=== PATIENT | female | born 1985 | race American Indian/Alaskan Native ===

== ENCOUNTER 2020-04-04 17:17 | Inpatient (IN) | payer MEDICAID ==
[2020-04-04] MEDS ORDERED: LACTATED RINGERS 1,000 ML ONE ×2 (18:44→20:42)
[2020-04-04 18:53] LABS: Bilirubin,Urine NEG (Negative); Blood,Urine SM (Negative); Color,Urine Yellow (Yellow); Mucus,Urine FEW /HPF; Protein,Urine <15 mg/dL mg/dL (Negative)
[2020-04-04] MEDS ORDERED: LACTATED RINGERS 1,000 ML IV ONE (18:53)
[2020-04-04 19:16] LABS: Hematocrit 32.8 % (30.3-42.9); Hemoglobin 11.6 gm/dl (10.1-14.3); Mean Corpuscular HGB Conc 35 % (30-34); Mean Corpuscular Volume 85 fl (79-97); Platelet Count 166 K/mm3 (140-440); Red Blood Count 3.85 M/mm3 (3.65-5.03); Red Cell Distribution Width 14.4 % (13.2-15.2)
[2020-04-04 19:40] LABS: Alanine Aminotransferase 13 units/L (7-56); Albumin 3.6 g/dL (3.9-5); Blood Urea Nitrogen 4 mg/dL (7-17); Calcium 9.7 mg/dL (8.4-10.2); Hemolysis Index 17
[2020-04-04 19:41] LABS: Alanine Aminotransferase 13 units/L (7-56); Uric Acid 4.5 mg/dL (3.5-7.6)
[2020-04-04 19:43] LABS: BUN/Creatinine Ratio 8
[2020-04-04] MEDS ORDERED: hydrALAZINE 20 MG/1 ML INJ IV PRN (20:24)
--- NOTE | 2020-04-04 20:31 | History and Physical Report ---
History of Present Illness Date of examination: 04/04/20 Date of admission: 04/04/2020 Chief complaint: Sent from [facility] to have BP labs done. Patient states she was supposed to come on Sunday but didn't have time to come until today. History of present illness: 34 year old presents to L&D for preeclamptic labs. She states she saw [facility] on Sunday and was supposed to come and get labs that day but did not have time until tonight. Patient states she receives care at [facility]; records are not available. States she also saw [facility]. Patient reports her EDC is 05/21/2020. LMP 07/2019. Patient reports history of type 2 diabetes for which she takes Metformin 500 mg po TID, depression for which she takes Zoloft 25 mg, and preeclampsia with a previous for which she has been taking a baby aspirin daily. Patient has a history of 3 previous vaginal births (all ). 2 of the births resulted from PPROM and the third was induced due to preeclampsia. Patient reports a penicillin allergy. 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 denies: smoking, alcohol abuse, p rescription drug abuse, IV drug use - Obstetrical History Expected Date of Delivery: 05/21/20 Actual Gestation: 33 Week(s) 2 Day(s) : 4 Para: 3 Hx # Term Pregnancies: 0 Number of Pregnancies: 3 Spontaneous Abortions: 0 Induced : 0 Number of Living Children: 3 Medications and Allergies Allergies Allergy/AdvReac Type Severity Reaction Status Date / Time Penicillins Allergy Swelling Verified 04/04/20 18:02 Home Medications Medication Instructions Recorded Confirmed Last Taken Type Aspirin [Aspirin BABY CHEW TAB] 81 mg PO DAILY 04/04/20 04/04/20 04/03/20 23:00 History Glipizide/Metformin HCl 1 each PO TID 04/04/20 04/04/20 04/04/20 11:30 History [glipiZIDE-Metformin 5-500 mg] Vit-Fe Fumar-FA [ 1 tab PO QDAY 04/04/20 04/04/20 04/03/20 23:00 History Vitamin] Sertraline [Zoloft] 25 mg PO QDAY 04/04/20 04/04/20 04/03/20 23:00 History Active Meds: Active Medications Acetaminophen (Tylenol) 650 mg PO Q4H PRN PRN Reason: Pain, Mild (1-3) Betamethasone Acet/Betameth SodPhos (Celestone Soluspan) 12 mg IM Q24HR ESAU Hydralazine HCl (Apresoline) 5 mg IV Q30MIN PRN PRN Reason: Hypertension Lactated Ringer's (Lactated Ringers) 1,000 mls @ 125 mls/hr IV DIRECT ESAU Magnesium Sulfate (Magnesium Sulfate 40gm/1000ml) 40 gm in 1,000 mls @ 50 mls/hr IV DIRECT ESAU Magnesium Sulfate (Magnesium Sulfate 4gm/100ml) 4 gm in 100 mls @ 300 mls/hr IV ONCE ONE Stop: 04/04/20 21:42 Review of Systems All systems: negative (nausea and elevated blood pressures) - Vital Signs Vital signs: Vital Signs Pulse BP 100 H 173/81 04/04/20 18:08 04/04/20 18:08 Temp Pulse Resp BP Pulse Ox 100 H 192/89 04/04/20 20:15 04/04/20 20:15 - Physical Exam Cardiovascular: Regular rate, Other (murmur heard) Lungs: Positive: Clear to auscultation Abdomen: Positive: normal appearance, soft. Negative: distention, tenderness, guarding, rigidity Genitourinary (Female): Positive: perineal/vulvar lesions, other (small lesion noted on left labia; possible lesion noted at introitus) Vagina: Positive: normal moisture Uterus: Positive: enlarged. Negative: tender Extremities: Positive: normal, edema (edema of hands and feet bilaterally) - Obstetrical FHR: category 1 Uterine Contraction Monitor Mode: External Cervical Dilatation: 2 Cervical Effacement Percentage: 20 station: -3 Uterine Contraction Pattern: Irregular Uterine Contraction Intensity: Mild Results Result Diagrams: 04/04/20 18:54 04/04/20 18:54 Abnormal lab results 04/04/20 04/04/20 04/04/20 Range/Units 18:54 18:54 18:54 MCHC 35 H (30-34) % Sodium 135 L (137-145) mmol/L Potassium 3.5 L (3.6-5.0) mmol/L BUN 4 L (7-17) mg/dL Creatinine 0.5 L 0.5 L (0.6-1.2) mg/dL Albumin 3.6 L (3.9-5) g/dL All other labs normal. Assessment and Plan A: at 33 weeks, 2 days gestation. Preeclampsia with severe features. Type 2 diabetes mellitus. Depression. Obesity. Noncompliance. No records available. Vulvar lesion. P: Admit. Continuous EFM. Labs ( and preeclamptic labs) and Ultrasound (EFW, EGA, EDC, JOHN, BPP, presentation, location and integrity of placenta). Magnesium Sulfate. Antihypertensives (Hydralazine IV and Labetalol PO). Celestone for FLM. NICU consult. Perinatology consult. Strict I/O. Perla catheter. Blood sugars every 2 hours. Request records from [place]. Herpes culture and serology. Valtrex 1 gram po BID started. Discussed with pt. possible etiologies of lesion, possible sequale. Consulted with Dr. Hector re: this patient. Management of patient was in collaboration with .
[2020-04-04] MEDS ORDERED: LACTATED RINGERS 1,000 ML IV SCH (21:00)
[2020-04-04] MEDS ORDERED: MAGNESIUM SULFATE 40GM/1000ML 40 GM/1,000 ML BAG IV SCH (21:00)
[2020-04-04] MEDS ORDERED: MAGNESIUM SULFATE 4 GM/100 ML BAG IV ONE (21:23)
[2020-04-04] MEDS: BETAMET ACET/BETAMET NA PH 6 MG/ML INJ 5 ML MDV IM SCH (21:40)
[2020-04-04] MEDS ORDERED: hydrALAZINE 20 MG/1 ML INJ IV ONE (21:52)
--- NOTE | 2020-04-04 22:44 | Ultrasound Report ---
ULTRASOUND OBSTETRIC INDICATION / CLINICAL INFORMATION: EGA, EDC, EFW, placenta, JOHN, presentation. TECHNIQUE: Transabdominal. COMPARISON: None available. FINDINGS: There is a single intrauterine . BREATHING MOVEMENT = 2 GROSS BODY MOVEMENT = 2 TONE = 2 QUALITATIVE AMNIOTIC FLUID VOLUME = 2 TOTAL BIOPHYSICAL SCORE = 8/8 Biparietal Diameter = 8.1 cm = 32.4 weeks.days Head Circumference = 29.2 cm = 32.2 weeks.days Abdominal Circumference = 29.5 cm = 33.3 weeks.days Femur Length = 6.3 cm = 32.3 weeks.days Average Ultrasound Age (AUA) = 32.5 weeks.days Heart Rate: 161 beats per minute. Estimated Weight in grams (if calculated): 2083 Position: cephalic. Cervix: closed. Length in cm (if measured): 3.6 Placenta: Fundal, grade 0 and free of the os. Amniotic Fluid Volume: normal Amniotic Fluid Index (JOHN) in cm (if calculated): 9.4. Maternal Adnexa: No significant abnormality. IMPRESSION: 1. Single, living intrauterine with estimated sonographic age of 32.5 weeks.days 2. No significant sonographic abnormality. Biophysical profile score of 8 out of 8. Signer Name: Hernandez Jimenes MD Signed: 04/04/2020 10:39 PM Workstation Name: [id number]
[2020-04-05] MEDS: ACETAMINOPHEN 325 MG TAB PO PRN ×2 (00:22→20:18)
[2020-04-05] MEDS: valACYclovir 500 MG TAB PO SCH ×2 (00:23→10:00)
--- NOTE | 2020-04-05 01:13 | Event Note ---
<KERRY ZAVALA - Last Filed: 04/05/20 00:44> Date: 04/05/20 Patient reports contractions every few minutes. Patient is receiving magnesium sulfate. SVE 2.5/60/-3/anterior. Had a long discussion with patient re: genital lesion on left labia and also red area at introitus. Advised patient that culture has been taken and sent to lab and that serology will be drawn. Advised patient that the results take several days and she may deliver before results are available. Advised patient that there is no way to know today whether this lesion is herpes or not. Advised patient that the recommendation is for section if she should go into labor. Advised patient that if she were to have a vaginal and the lesion did happen to be herpes, the baby could have serious sequelae (including blindness, seizures, brain damage, and ). Patient states she fully understands and accepts these risks to her baby and also understands the uncertainty of the lesion. She states she sill wants to proceed with having a vaginal in spite of these possible sequelae to her baby. Informed Dr. Hector of all of the above. <MARAL HECTOR - Last Filed: 04/05/20 02:18> After she gave verbal consent to exam her and discuss care in the presents of her visitor she was examined and findings were discussed. Left anterior labial ulcerated lesion noted, patient denies h/o HSV, states the lesion occurred a couple of days ago after shaving. She was again informed that if she has a vaginal delivery with an active genital HSV lesion the infection may be transmitted to the baby and such infection could cause poor outcome such as, but not limited to, blindness, brain damage and . She was also informed that delivery is recommended to prevent or mitigated the risk of transmission to the baby. Again she declines delivery should she labor however she's aware she can change her mind at time. She voiced understanding.
[2020-04-05 01:15] LABS: Hepatitis C Virus Antibody Non-Reactive (NonReactive)
[2020-04-05] MEDS ORDERED: DEXTROSE 50% IN WATER (25GM) 50 ML SYRINGE IV PRN (02:47)
[2020-04-05] MEDS: INSULIN REGULAR, HUMAN 100 UNIT/ML 3ML VIAL SUB-Q SCH ×2 (12:55→23:03)
--- NOTE | 2020-04-05 13:14 | Consultation ---
History of Present Illness Consult date: 04/05/20 Requesting physician: FATIMAH ALAS History of present illness: History of present illness: Ms. Faith is 34 y/o EGA at 33 3/7 weeks ANNALEE at 05/21/20 - followed by [facility] duet to AMA DM and H/O Preeclampsia , PTD Presented last pm for PIH evaluation ( Seen by TONI on 04/02/20 and had recommended admission on Sunday for PIH work up ) Seen by TONI Sunday and BP's borderline elevated at 147/87 and 140/69 History of Preeclampsia with 3rd 2018 and Induced at 36 weeks On Admission last pm BP's elevated - Highest at 191/104 and 166/66 - started on Labetalol ( " and patient states they were about to have blood drawn when BP's spiked and she is afraid of needles") BP's - most recent 120/82 and 114/80 - Currently on Labetalol 100 BID and Mg Had PEARL's - ? due to Mg Pos FM's ---- No Scotoma or RUQ pain Ext no edema - DTR 1/ no clonus and Abd no RUQ tenderness ---- BS's 78 and 178 - currently on Metrformin 500 TID --- Labs UA spot prot at < 15 H/H at 11.6/32 Plts at 166 AST/ALT at 32/13 Creat at .5 ---- EFM 130 - Categ I occ ctx's ---- [facility] -03/26/20 - EFW at 1731 grams (3#13oz) 20% with AC at 22% ---- 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, gonorrhea, hepatitis B, hepatitis C, herpes, HIV, syphilis, trichomonas Family/Genetic History: diabetes, heart disease, cancer - Obstetrical History : 4 Medications and Allergies Allergies Allergy/AdvReac Type Severity Reaction Status Date / Time Penicillins Allergy Swelling Verified 04/04/20 18:02 Home Medications Medication Instructions Recorded Confirmed Last Taken Type Aspirin [Aspirin BABY CHEW TAB] 81 mg PO DAILY 04/04/20 04/04/20 04/03/20 23:00 History Glipizide/Metformin HCl 1 each PO TID 04/04/20 04/04/20 04/04/20 11:30 History [glipiZIDE-Metformin 5-500 mg] Vit-Fe Fumar-FA [ 1 tab PO QDAY 04/04/20 04/04/20 04/03/20 23:00 History Vitamin] Sertraline [Zoloft] 25 mg PO QDAY 04/04/20 04/04/20 04/03/20 23:00 History Active Meds: Active Medications Acetaminophen (Tylenol) 650 mg PO Q4H PRN PRN Reason: Pain, Mild (1-3) Last Admin: 04/05/20 00:22 Dose: 650 mg Documented by: Dextrose (D50w (25gm) Syringe) 0 ml IV Q30MIN PRN; Protocol PRN Reason: Hypoglycemia Magnesium Sulfate (Magnesium Sulfate 40gm/1000ml) 40 gm in 1,000 mls @ 50 mls/hr IV DIRECT ESAU Last Admin: 04/04/20 21:25 Dose: 2 gm/hr, 50 mls/hr Documented by: Lactated Ringer's (Lactated Ringers) 1,000 mls @ 125 mls/hr IV DIRECT ESAU Insulin Human Regular (Humulin R) 0 unit SUB-Q Q6HR ESAU; Protocol Labetalol HCl (Labetalol) 100 mg PO BID ESAU Labetalol HCl (Labetalol) 200 mg PO BID ESAU Valacyclovir HCl (Valtrex) 1,000 mg PO BID ESAU Last Admin: 04/05/20 00:23 Dose: 1,000 mg Documented by: - Vital Signs Vital signs: Vital Signs Pulse BP 100 H 173/81 04/04/20 18:08 04/04/20 18:08 Temp Pulse Resp BP Pulse Ox 98.1 F 95 H 20 121/70 100 04/05/20 07:00 04/05/20 13:04 04/05/20 11:00 04/05/20 12:53 04/05/20 13:04 Results Result Diagrams: 04/04/20 18:54 04/04/20 18:54 Abnormal lab results 04/04/20 04/04/20 04/04/20 Range/Units 18:54 18:54 18:54 MCHC 35 H (30-34) % Sodium 135 L (137-145) mmol/L Potassium 3.5 L (3.6-5.0) mmol/L BUN 4 L (7-17) mg/dL Creatinine 0.5 L 0.5 L (0.6-1.2) mg/dL POC Glucose (70-105) mg/dL Magnesium (1.7-2.3) mg/dL Albumin 3.6 L (3.9-5) g/dL 04/05/20 04/05/20 04/05/20 Range/Units 03:10 03:42 12:56 MCHC (30-34) % Sodium (137-145) mmol/L Potassium (3.6-5.0) mmol/L BUN (7-17) mg/dL Creatinine (0.6-1.2) mg/dL POC Glucose 178 H 170 H (70-105) mg/dL Magnesium 4.50 H (1.7-2.3) mg/dL Albumin (3.9-5) g/dL All other labs normal. Assessment and Plan Impression: 1. Harris IUP at 33 3/7 weeks 2. Gestational HTN - R/O Preeclampsia with Severe Features 3. DM 4. H/O Preeclampsia with third 5. H/O depression 6. H/O PTD X 2 ( PPROM X 2) Recommendations 1. Steroids for FLM 2. DC Mg this afternoon 3. Obtain 24 Hour urine for prot and CC 4. Accuchecks Fastings and 2 Hour PP's 5. Labetalol 100 BID 6. LDA 7. Metformin 500 TID 8. Delivery for S/S of preeclampsia with severe features or compromise 9. If BP's remain stable will consider DC with close maternal/ surveillance and PIH labs weekly and BPP's weekly 10. Patient also told if discharged to monitor for S/S of PIH and get BP cuff/machine and take BP's daily
--- NOTE | 2020-04-05 19:16 | Progress Note ---
Subjective - Subjective Date of service: 04/05/20 Principal diagnosis: elevated blood pressures Interval history: 34 yo at 33w3d followed by [facility] 2/2 AMA, DM (on metformin), and H/O Preeclampsia, depression (on Zoloft), hx delivery x 2 presenting with elevated blood pressures. Now getting 24H TP. BPs mildly elevated. s/p steriods x 1, needs 2nd dose. On magnesium. On labetolol 100mg BID for elevated BPs. Patient reports now thinking she had [place] contractions, but now think they were regular contractions. Today PM at ~1800, has vaginal clot passage. Still normal movement. Objective - Vital Signs Latest vital signs: Vital Signs Temp Pulse Resp BP Pulse Ox 04/05/20 19:04 93 H 100 04/05/20 19:01 18 100 04/05/20 18:59 95 H 100 04/05/20 18:54 95 H 100 04/05/20 18:52 92 H 140/67 04/05/20 18:49 93 H 100 04/05/20 18:44 107 H 100 04/05/20 18:23 95 H 129/67 04/05/20 17:49 107 H 100 04/05/20 17:44 90 99 04/05/20 17:39 92 H 100 04/05/20 17:34 102 H 100 04/05/20 17:29 104 H 100 04/05/20 17:24 103 H 100 04/05/20 17:19 101 H 99 04/05/20 17:14 91 H 99 04/05/20 17:09 103 H 100 04/05/20 17:04 91 H 99 04/05/20 17:00 16 99 04/05/20 16:59 99 H 99 04/05/20 16:54 90 100 04/05/20 16:52 100 H 131/68 04/05/20 16:49 95 H 100 04/05/20 16:44 102 H 98 04/05/20 16:39 91 H 98 04/05/20 16:34 90 99 04/05/20 16:29 99 H 100 04/05/20 16:24 101 H 100 04/05/20 16:19 99 H 99 04/05/20 16:14 98 H 100 04/05/20 16:09 92 H 98 11/16/20 16:04 90 99 16/20 15:59 102 H 99 16/20 15:54 91 H 99 16/20 15:52 100 H 123/65 16/20 15:49 96 H 99 16/20 15:44 91 H 98 16/20 15:39 89 98 16/20 15:34 98 H 100 16/20 15:29 87 99 16/20 15:24 85 100 16/20 15:19 101 H 99 16/20 15:14 102 H 100 16/20 15:09 99 H 100 16/20 15:04 97 H 100 16/20 15:00 98.0 F 19 100 20 14:59 93 H 98 20 14:54 91 H 98 20 14:52 91 H 99/52 20 14:49 92 H 99 20 14:44 95 H 100 20 14:39 93 H 99 20 14:34 93 H 100 20 14:29 92 H 100 20 14:24 92 H 100 20 14:23 93 H 113/51 04/05/20 14:19 83 100 04/05/20 14:14 84 99 20 14:09 82 99 04/05/20 14:04 83 99 20 14:01 85 94/51 20 13:59 82 99 20 13:55 87 93/52 20 13:54 84 100 1620 13:52 83 96/52 20 13:49 79 99 1620 13:44 82 99 1620 13:39 82 99 1620 13:34 88 99 1620 13:29 88 99 1620 13:24 88 100 1620 13:19 90 99 1620 13:14 89 99 1620 13:09 97 H 99 20 13:04 95 H 100 1620 13:00 20 99 20 12:59 93 H 99 11/16/20 12:54 102 H 100 16/20 12:53 100 H 121/70 16/20 12:49 97 H 99 16/20 12:44 95 H 98 16/20 12:39 89 100 16/20 12:34 91 H 99 16/20 12:29 87 98 16/20 12:24 83 99 16/20 12:19 86 99 16/20 12:14 85 100 16/20 12:09 79 100 16/20 12:04 93 H 99 16/20 11:59 93 H 99 16/20 11:54 92 H 114/57 99 16/20 11:49 86 99 16/20 11:44 84 96 16/20 11:39 95 H 99 16/20 11:34 97 H 97 04/05/20 11:29 97 H 97 16/20 11:24 100 H 98 04/05/20 11:19 99 H 97 04/05/20 11:14 99 H 97 04/05/20 11:09 101 H 97 04/05/20 11:04 101 H 97 16/20 11:00 98.1 F 20 99 16/20 10:59 105 H 98 16/20 10:54 100 H 98 16/20 10:53 96 H 125/59 16/20 10:49 98 H 99 16/20 10:44 99 H 99 16/20 10:39 101 H 99 16/20 10:34 105 H 99 16/20 10:29 91 H 98 16/20 10:24 93 H 97 16/20 10:19 96 H 97 16/20 10:14 93 H 98 16/20 10:09 93 H 98 16/20 10:04 94 H 97 16/20 09:59 95 H 97 16/20 09:54 93 H 98 16/20 09:52 92 H 120/60 16/20 09:49 95 H 98 16/20 09:44 95 H 99 16/20 09:39 92 H 99 16/20 09:34 102 H 99 16/20 09:29 95 H 99 16/20 09:24 104 H 99 20 09:19 103 H 100 20 09:14 103 H 100 20 09:09 107 H 100 20 09:04 98 H 100 20 09:00 18 100 20 08:59 100 H 99 20 08:54 100 H 99 20 08:52 103 H 134/64 20 08:49 101 H 100 1620 08:44 94 H 99 20 08:39 97 H 99 20 08:34 96 H 100 20 08:29 93 H 99 20 08:24 95 H 98 20 08:19 92 H 98 04/05/20 08:14 101 H 100 20 08:09 92 H 98 04/05/20 08:04 105 H 98 04/05/20 07:59 102 H 99 04/05/20 07:54 102 H 133/73 100 20 07:49 102 H 100 20 07:44 97 H 99 20 07:39 98 H 100 20 07:34 99 H 99 04/05/20 07:29 98 H 99 04/05/20 07:24 100 H 100 20 07:19 99 H 100 04/05/20 07:14 109 H 99 04/05/20 07:09 102 H 99 04/05/20 07:04 99 H 99 04/05/20 07:00 98.1 F 18 99 20 06:59 101 H 100 20 06:54 102 H 99 20 06:52 105 H 133/68 20 06:49 104 H 100 20 06:44 104 H 99 20 06:39 99 H 99 20 06:34 105 H 99 20 06:29 103 H 97 20 06:24 100 H 99 20 06:19 91 H 98 20 06:14 99 H 99 20 06:09 91 H 99 11/16/20 06:04 91 H 99 /16/20 05:59 92 H 99 16/20 05:54 95 H 99 /16/20 05:52 94 H 136/75 16/20 05:49 93 H 99 16/20 05:44 95 H 99 16/20 05:39 104 H 99 16/20 05:34 95 H 97 16/20 05:29 95 H 98 16/20 05:24 94 H 99 16/20 05:19 98 H 99 16/20 05:14 111 H 99 16/20 05:09 101 H 99 16/20 05:04 106 H 99 16/20 04:59 99 H 98 16/20 04:54 104 H 99 16/20 04:52 97 H 129/67 16/20 04:49 101 H 98 16/20 04:44 101 H 98 16/20 04:39 104 H 98 16/20 04:34 102 H 97 16/20 04:29 102 H 97 16/20 04:24 101 H 97 /16/20 04:19 102 H 97 16/20 04:14 102 H 97 16/20 04:09 102 H 98 16/20 04:04 100 H 97 16/20 03:59 101 H 97 16/20 03:54 104 H 99 16/20 03:52 98 H 122/62 16/20 03:49 98 H 99 16/20 03:44 105 H 99 16/20 03:39 104 H 99 16/20 03:34 100 H 100 /16/20 03:29 106 H 100 /16/20 03:24 101 H 99 16/20 03:19 92 H 99 16/20 03:14 105 H 98 16/20 03:09 94 H 98 16/20 03:04 93 H 100 16/20 02:59 96 H 99 16/20 02:54 95 H 131/72 99 16/20 02:49 99 H 99 16/20 02:44 96 H 99 11/16/20 02:39 92 H 98 04/05/20 02:34 93 H 100 04/05/20 02:29 105 H 99 04/05/20 02:24 102 H 98 04/05/20 02:19 101 H 97 04/05/20 02:14 102 H 99 04/05/20 02:09 105 H 100 04/05/20 02:04 106 H 99 04/05/20 01:59 101 H 98 04/05/20 01:54 101 H 99 04/05/20 01:52 98 H 119/57 04/05/20 01:49 104 H 99 04/05/20 01:44 100 H 98 04/05/20 01:39 99 H 99 04/05/20 01:34 99 H 99 04/05/20 01:29 98 H 100 04/05/20 01:24 98 H 100 04/05/20 01:19 101 H 99 04/05/20 01:14 94 H 99 04/05/20 01:09 91 H 99 04/05/20 01:04 97 H 98 04/05/20 00:59 92 H 99 04/05/20 00:54 91 H 100 04/05/20 00:52 96 H 120/57 04/05/20 00:49 96 H 100 04/05/20 00:44 97 H 99 04/05/20 00:39 95 H 100 04/05/20 00:34 93 H 100 04/05/20 00:29 109 H 100 04/05/20 00:24 104 H 100 04/05/20 00:19 99 H 100 04/05/20 00:18 103 H 142/67 04/05/20 00:14 105 H 100 04/05/20 00:09 98 H 100 04/05/20 00:04 102 H 100 04/04/20 23:59 103 H 99 04/04/20 23:54 101 H 99 04/04/20 23:52 100 H 127/67 04/04/20 23:49 101 H 100 04/04/20 23:44 100 H 99 04/04/20 23:39 103 H 100 04/04/20 23:34 107 H 100 04/04/20 23:29 102 H 99 04/04/20 23:24 101 H 99 04/04/20 23:19 103 H 99 04/04/20 23:14 99 H 100 04/04/20 23:09 99 H 100 04/04/20 23:04 108 H 100 04/04/20 22:59 103 H 100 04/04/20 22:54 105 H 99 04/04/20 22:53 104 H 131/76 04/04/20 22:49 103 H 140/67 100 04/04/20 22:44 106 H 99 04/04/20 22:39 102 H 99 04/04/20 22:34 103 H 99 04/04/20 22:30 18 99 04/04/20 22:29 103 H 99 04/04/20 22:24 104 H 99 04/04/20 22:19 111 H 99 04/04/20 22:14 98.4 F 101 H 100 04/04/20 22:09 98 H 100 04/04/20 22:04 109 H 99 04/04/20 21:59 94 H 100 04/04/20 21:54 95 H 99 04/04/20 21:51 98 H 166/74 04/04/20 21:50 110 H 191/104 04/04/20 21:49 109 H 99 04/04/20 21:46 102 H 159/74 04/04/20 21:45 106 H 159/74 04/04/20 21:44 110 H 100 04/04/20 21:39 104 H 153/74 100 04/04/20 21:34 100 H 144/74 99 04/04/20 21:29 101 H 153/73 99 04/04/20 21:25 18 98 04/04/20 21:24 107 H 153/74 99 04/04/20 21:19 103 H 157/74 99 04/04/20 21:14 103 H 154/75 99 04/04/20 21:09 102 H 158/77 100 04/04/20 21:04 103 H 159/78 99 04/04/20 20:45 94 H 174/86 04/04/20 20:15 100 H 192/89 04/04/20 20:00 85 169/82 04/04/20 19:45 86 190/90 04/04/20 19:16 92 H 171/77 Intake and Output 04/05/20 04/05/20 04/05/20 07:59 15:59 23:59 Output Total 9954 883 6204 Balance -1400 -900 -1000 Output: Urine 4321 986 9853 Indwelling Catheter 7954 165 4656 Other: Total, Output Amount 500 100 450 - Labs Labs: Abnormal lab results 04/04/20 04/04/20 04/04/20 Range/Units 18:54 18:54 18:54 MCHC 35 H (30-34) % Sodium 135 L (137-145) mmol/L Potassium 3.5 L (3.6-5.0) mmol/L BUN 4 L (7-17) mg/dL Creatinine 0.5 L 0.5 L (0.6-1.2) mg/dL POC Glucose (70-105) mg/dL Magnesium (1.7-2.3) mg/dL Albumin 3.6 L (3.9-5) g/dL 04/05/20 04/05/20 04/05/20 Range/Units 03:10 03:42 12:56 MCHC (30-34) % Sodium (137-145) mmol/L Potassium (3.6-5.0) mmol/L BUN (7-17) mg/dL Creatinine (0.6-1.2) mg/dL POC Glucose 178 H 170 H (70-105) mg/dL Magnesium 4.50 H (1.7-2.3) mg/dL Albumin (3.9-5) g/dL 04/05/20 Range/Units 15:00 MCHC (30-34) % Sodium (137-145) mmol/L Potassium (3.6-5.0) mmol/L BUN (7-17) mg/dL Creatinine (0.6-1.2) mg/dL POC Glucose (70-105) mg/dL Magnesium 4.60 H (1.7-2.3) mg/dL Albumin (3.9-5) g/dL
--- NOTE | 2020-04-05 19:21 | Progress Note ---
Assessment and Plan - Patient Problems (1) contractions Current Visit: Yes Status: Acute Plan to address problem: --Started on Nifedipine 10mg q6hr for tocolysis (2) Vaginal bleeding in Current Visit: Yes Status: Acute Plan to address problem: --Abruption labs ordered. EFM wnl and patient feeling normal movement (3) Elevated blood pressure affecting in third trimester, antepartum Current Visit: Yes Status: Acute Plan to address problem: --Continue labetolol 100mg BID, 24H TP pending. On steriods, to complete 2 doses. On magnesium for neuroprotection. To be d/c in PM. Amp if evidence of labor. On low dose asprin given hx of SPE. (4) Diabetes in Current Visit: Yes Status: Acute Plan to address problem: --CBGs per routine. Metformin 500mg TID. (5) Depression affecting Current Visit: Yes Status: Acute Plan to address problem: --Continue home Zoloft (6) Genital lesion, female Current Visit: Yes Status: Acute Plan to address problem: --Denies hx of HSV. Patient was regardless and accepts risk if HSV pos. Started prophylactically on acyclovir. Subjective - Subjective Date of service: 04/05/20 Principal diagnosis: elevated blood pressures Interval history: 34 yo at 33w3d followed by [facility] 2/2 AMA, DM (on metformin), and H/O Preeclampsia, depression (on Zoloft), hx delivery x 2 presenting with elevated blood pressures. Now getting 24H TP. BPs mildly elevated. s/p steriods x 1, needs 2nd dose. On magnesium. On labetolol 100mg BID for elevated BPs. Patient reports now thinking she had [place] contractions, but now think they were regular contractions. Today PM at ~1800, has vaginal clot passage. Still normal movement. Patient reports: vaginal bleeding (with clot passage, since resolved) Objective - Vital Signs Vital Signs: Vital Signs - 12hr 04/05/20 04/05/20 04/05/20 07:19 07:24 07:29 Temperature Pulse Rate 99 H 100 H 98 H Respiratory Rate Blood Pressure O2 Sat by Pulse 100 100 99 Oximetry 04/05/20 04/05/20 04/05/20 07:34 07:39 07:44 Temperature Pulse Rate 99 H 98 H 97 H Respiratory Rate Blood Pressure O2 Sat by Pulse 99 100 99 Oximetry 04/05/20 04/05/20 04/05/20 07:49 07:54 07:59 Temperature Pulse Rate 102 H 102 H 102 H Respiratory Rate Blood Pressure 133/73 O2 Sat by Pulse 100 100 99 Oximetry 04/05/20 04/05/20 04/05/20 08:04 08:09 08:14 Temperature Pulse Rate 105 H 92 H 101 H Respiratory Rate Blood Pressure O2 Sat by Pulse 98 98 100 Oximetry 04/05/20 04/05/20 04/05/20 08:19 08:24 08:29 Temperature Pulse Rate 92 H 95 H 93 H Respiratory Rate Blood Pressure O2 Sat by Pulse 98 98 99 Oximetry 04/05/20 04/05/20 04/05/20 08:34 08:39 08:44 Temperature Pulse Rate 96 H 97 H 94 H Respiratory Rate Blood Pressure O2 Sat by Pulse 100 99 99 Oximetry 04/05/20 04/05/20 04/05/20 08:49 08:52 08:54 Temperature Pulse Rate 101 H 103 H 100 H Respiratory Rate Blood Pressure 134/64 O2 Sat by Pulse 100 99 Oximetry 04/05/20 04/05/20 04/05/20 08:59 09:00 09:04 Temperature Pulse Rate 100 H 98 H Respiratory 18 Rate Blood Pressure O2 Sat by Pulse 99 100 100 Oximetry 04/05/20 04/05/20 04/05/20 09:09 09:14 09:19 Temperature Pulse Rate 107 H 103 H 103 H Respiratory Rate Blood Pressure O2 Sat by Pulse 100 100 100 Oximetry 04/05/20 04/05/20 04/05/20 09:24 09:29 09:34 Temperature Pulse Rate 104 H 95 H 102 H Respiratory Rate Blood Pressure O2 Sat by Pulse 99 99 99 Oximetry 04/05/20 04/05/20 04/05/20 09:39 09:44 09:49 Temperature Pulse Rate 92 H 95 H 95 H Respiratory Rate Blood Pressure O2 Sat by Pulse 99 99 98 Oximetry 04/05/20 04/05/20 04/05/20 09:52 09:54 09:59 Temperature Pulse Rate 92 H 93 H 95 H Respiratory Rate Blood Pressure 120/60 O2 Sat by Pulse 98 97 Oximetry 04/05/20 04/05/20 04/05/20 10:04 10:09 10:14 Temperature Pulse Rate 94 H 93 H 93 H Respiratory Rate Blood Pressure O2 Sat by Pulse 97 98 98 Oximetry 04/05/20 04/05/20 04/05/20 10:19 10:24 10:29 Temperature Pulse Rate 96 H 93 H 91 H Respiratory Rate Blood Pressure O2 Sat by Pulse 97 97 98 Oximetry 04/05/20 04/05/20 04/05/20 10:34 10:39 10:44 Temperature Pulse Rate 105 H 101 H 99 H Respiratory Rate Blood Pressure O2 Sat by Pulse 99 99 99 Oximetry 04/05/20 04/05/20 04/05/20 10:49 10:53 10:54 Temperature Pulse Rate 98 H 96 H 100 H Respiratory Rate Blood Pressure 125/59 O2 Sat by Pulse 99 98 Oximetry 04/05/20 04/05/20 04/05/20 10:59 11:00 11:04 Temperature 98.1 F Pulse Rate 105 H 101 H Respiratory 20 Rate Blood Pressure O2 Sat by Pulse 98 99 97 Oximetry 04/05/20 04/05/20 04/05/20 11:09 11:14 11:19 Temperature Pulse Rate 101 H 99 H 99 H Respiratory Rate Blood Pressure O2 Sat by Pulse 97 97 97 Oximetry 04/05/20 04/05/20 04/05/20 11:24 11:29 11:34 Temperature Pulse Rate 100 H 97 H 97 H Respiratory Rate Blood Pressure O2 Sat by Pulse 98 97 97 Oximetry 04/05/20 04/05/20 04/05/20 11:39 11:44 11:49 Temperature Pulse Rate 95 H 84 86 Respiratory Rate Blood Pressure O2 Sat by Pulse 99 96 99 Oximetry 04/05/20 04/05/20 04/05/20 11:54 11:59 12:04 Temperature Pulse Rate 92 H 93 H 93 H Respiratory Rate Blood Pressure 114/57 O2 Sat by Pulse 99 99 99 Oximetry 04/05/20 04/05/20 04/05/20 12:09 12:14 12:19 Temperature Pulse Rate 79 85 86 Respiratory Rate Blood Pressure O2 Sat by Pulse 100 100 99 Oximetry 04/05/20 04/05/20 04/05/20 12:24 12:29 12:34 Temperature Pulse Rate 83 87 91 H Respiratory Rate Blood Pressure O2 Sat by Pulse 99 98 99 Oximetry 04/05/20 04/05/20 04/05/20 12:39 12:44 12:49 Temperature Pulse Rate 89 95 H 97 H Respiratory Rate Blood Pressure O2 Sat by Pulse 100 98 99 Oximetry 04/05/20 04/05/20 04/05/20 12:53 12:54 12:59 Temperature Pulse Rate 100 H 102 H 93 H Respiratory Rate Blood Pressure 121/70 O2 Sat by Pulse 100 99 Oximetry 04/05/20 04/05/20 04/05/20 13:00 13:04 13:09 Temperature Pulse Rate 95 H 97 H Respiratory 20 Rate Blood Pressure O2 Sat by Pulse 99 100 99 Oximetry 04/05/20 04/05/20 04/05/20 13:14 13:19 13:24 Temperature Pulse Rate 89 90 88 Respiratory Rate Blood Pressure O2 Sat by Pulse 99 99 100 Oximetry 04/05/20 04/05/20 04/05/20 13:29 13:34 13:39 Temperature Pulse Rate 88 88 82 Respiratory Rate Blood Pressure O2 Sat by Pulse 99 99 99 Oximetry 04/05/20 04/05/20 04/05/20 13:44 13:49 13:52 Temperature Pulse Rate 82 79 83 Respiratory Rate Blood Pressure 96/52 O2 Sat by Pulse 99 99 Oximetry 04/05/20 04/05/20 04/05/20 13:54 13:55 13:59 Temperature Pulse Rate 84 87 82 Respiratory Rate Blood Pressure 93/52 O2 Sat by Pulse 100 99 Oximetry 04/05/20 04/05/20 04/05/20 14:01 14:04 14:09 Temperature Pulse Rate 85 83 82 Respiratory Rate Blood Pressure 94/51 O2 Sat by Pulse 99 99 Oximetry 04/05/20 04/05/20 04/05/20 14:14 14:19 14:23 Temperature Pulse Rate 84 83 93 H Respiratory Rate Blood Pressure 113/51 O2 Sat by Pulse 99 100 Oximetry 04/05/20 04/05/20 04/05/20 14:24 14:29 14:34 Temperature Pulse Rate 92 H 92 H 93 H Respiratory Rate Blood Pressure O2 Sat by Pulse 100 100 100 Oximetry 04/05/20 04/05/20 04/05/20 14:39 14:44 14:49 Temperature Pulse Rate 93 H 95 H 92 H Respiratory Rate Blood Pressure O2 Sat by Pulse 99 100 99 Oximetry 04/05/20 04/05/20 04/05/20 14:52 14:54 14:59 Temperature Pulse Rate 91 H 91 H 93 H Respiratory Rate Blood Pressure 99/52 O2 Sat by Pulse 98 98 Oximetry 04/05/20 04/05/20 04/05/20 15:00 15:04 15:09 Temperature 98.0 F Pulse Rate 97 H 99 H Respiratory 19 Rate Blood Pressure O2 Sat by Pulse 100 100 100 Oximetry 04/05/20 04/05/20 04/05/20 15:14 15:19 15:24 Temperature Pulse Rate 102 H 101 H 85 Respiratory Rate Blood Pressure O2 Sat by Pulse 100 99 100 Oximetry 04/05/20 04/05/20 04/05/20 15:29 15:34 15:39 Temperature Pulse Rate 87 98 H 89 Respiratory Rate Blood Pressure O2 Sat by Pulse 99 100 98 Oximetry 04/05/20 04/05/20 04/05/20 15:44 15:49 15:52 Temperature Pulse Rate 91 H 96 H 100 H Respiratory Rate Blood Pressure 123/65 O2 Sat by Pulse 98 99 Oximetry 04/05/20 04/05/20 04/05/20 15:54 15:59 16:04 Temperature Pulse Rate 91 H 102 H 90 Respiratory Rate Blood Pressure O2 Sat by Pulse 99 99 99 Oximetry 04/05/20 04/05/20 04/05/20 16:09 16:14 16:19 Temperature Pulse Rate 92 H 98 H 99 H Respiratory Rate Blood Pressure O2 Sat by Pulse 98 100 99 Oximetry 04/05/20 04/05/20 04/05/20 16:24 16:29 16:34 Temperature Pulse Rate 101 H 99 H 90 Respiratory Rate Blood Pressure O2 Sat by Pulse 100 100 99 Oximetry 04/05/20 04/05/20 04/05/20 16:39 16:44 16:49 Temperature Pulse Rate 91 H 102 H 95 H Respiratory Rate Blood Pressure O2 Sat by Pulse 98 98 100 Oximetry 04/05/20 04/05/20 04/05/20 16:52 16:54 16:59 Temperature Pulse Rate 100 H 90 99 H Respiratory Rate Blood Pressure 131/68 O2 Sat by Pulse 100 99 Oximetry 04/05/20 04/05/20 04/05/20 17:00 17:04 17:09 Temperature Pulse Rate 91 H 103 H Respiratory 16 Rate Blood Pressure O2 Sat by Pulse 99 99 100 Oximetry 04/05/20 04/05/2020 17:14 17:19 17:24 Temperature Pulse Rate 91 H 101 H 103 H Respiratory Rate Blood Pressure O2 Sat by Pulse 99 99 100 Oximetry 04/05/20 04/05/20 04/05/20 17:29 17:34 17:39 Temperature Pulse Rate 104 H 102 H 92 H Respiratory Rate Blood Pressure O2 Sat by Pulse 100 100 100 Oximetry 04/05/20 04/05/20 04/05/20 17:44 17:49 18:23 Temperature Pulse Rate 90 107 H 95 H Respiratory Rate Blood Pressure 129/67 O2 Sat by Pulse 99 100 Oximetry 04/05/20 04/05/20 04/05/20 18:44 18:49 18:52 Temperature Pulse Rate 107 H 93 H 92 H Respiratory Rate Blood Pressure 140/67 O2 Sat by Pulse 100 100 Oximetry 04/05/20 04/05/20 04/05/20 18:54 18:59 19:01 Temperature Pulse Rate 95 H 95 H Respiratory 18 Rate Blood Pressure O2 Sat by Pulse 100 100 100 Oximetry 04/05/20 04/05/20 04/05/20 19:04 19:09 19:14 Temperature Pulse Rate 93 H 100 H 98 H Respiratory Rate Blood Pressure O2 Sat by Pulse 100 100 100 Oximetry - Exam Abdomen: Present: normal appearance, normal bowel sounds, other (gravid) Uterine Contraction Pattern: Irregular Uterine Tone Measurement Phase: Resting Uterine Contraction Intensity: Strong/Firm - Labs Labs: Abnormal Labs 04/04/20 04/04/20 04/04/20 18:54 18:54 18:54 MCHC 35 H Sodium 135 L Potassium 3.5 L BUN 4 L Creatinine 0.5 L 0.5 L POC Glucose Magnesium Albumin 3.6 L 04/05/20 04/05/20 04/05/20 03:10 03:42 12:56 MCHC Sodium Potassium BUN Creatinine POC Glucose 178 H 170 H Magnesium 4.50 H Albumin 04/05/20 15:00 MCHC Sodium Potassium BUN Creatinine POC Glucose Magnesium 4.60 H Albumin Laboratory Results - last 24 hr 04/04/20 04/04/20 04/04/20 00:05 18:54 18:54 Sodium 135 L Potassium 3.5 L Chloride 102.7 Carbon Dioxide 22 Anion Gap 14 BUN 4 L Creatinine 0.5 L 0.5 L Estimated GFR > 60 > 60 BUN/Creatinine Ratio 8 Glucose 92 POC Glucose Hemoglobin A1c Uric Acid 4.5 Calcium 9.7 Magnesium Total Bilirubin 0.30 AST 31 32 ALT 13 13 Alkaline Phosphatase 92 Lactate Dehydrogenase 176 Total Protein 6.4 Albumin 3.6 L Albumin/Globulin Ratio 1.3 Syphilis IgG Antibody Hep Bs Antigen Hepatitis C Antibody HIV 1&2 Antibody Rapid HIV P24 Antigen Rubella IgG Antibody Blood Type AB POSITIVE Antibody Screen Negative 04/04/20 04/04/20 04/05/20 18:54 21:55 00:05 Sodium Potassium Chloride Carbon Dioxide Anion Gap BUN Creatinine Estimated GFR BUN/Creatinine Ratio Glucose POC Glucose 70 Hemoglobin A1c 6.0 Uric Acid Calcium Magnesium Total Bilirubin AST ALT Alkaline Phosphatase Lactate Dehydrogenase Total Protein Albumin Albumin/Globulin Ratio Syphilis IgG Antibody Nonreactive Hep Bs Antigen Hepatitis C Antibody Non-reactive HIV 1&2 Antibody Rapid HIV P24 Antigen Rubella IgG Antibody Immune Blood Type Antibody Screen 04/05/20 04/05/20 04/05/20 00:05 00:05 03:10 Sodium Potassium Chloride Carbon Dioxide Anion Gap BUN Creatinine Estimated GFR BUN/Creatinine Ratio Glucose POC Glucose 178 H Hemoglobin A1c Uric Acid Calcium Magnesium Total Bilirubin AST ALT Alkaline Phosphatase Lactate Dehydrogenase Total Protein Albumin Albumin/Globulin Ratio Syphilis IgG Antibody Hep Bs Antigen Non-reactive Hepatitis C Antibody HIV 1&2 Antibody Rapid Non react HIV P24 Antigen Non react Rubella IgG Antibody Blood Type Antibody Screen 04/05/20 04/05/20 04/05/20 03:42 12:56 15:00 Sodium Potassium Chloride Carbon Dioxide Anion Gap BUN Creatinine Estimated GFR BUN/Creatinine Ratio Glucose POC Glucose 170 H Hemoglobin A1c Uric Acid Calcium Magnesium 4.50 H 4.60 H Total Bilirubin AST ALT Alkaline Phosphatase Lactate Dehydrogenase Total Protein Albumin Albumin/Globulin Ratio Syphilis IgG Antibody Hep Bs Antigen Hepatitis C Antibody HIV 1&2 Antibody Rapid HIV P24 Antigen Rubella IgG Antibody Blood Type Antibody Screen
[2020-04-05 19:25] LABS: Basophils % (Auto) 0.1 % (0.0-1.8); Hematocrit 29.2 % (30.3-42.9); Lymphocytes # (Auto) 1.1 K/mm3 (1.2-5.4); Lymphocytes % (Auto) 14.1 % (13.4-35.0); Mean Corpuscular HGB Conc 34 % (30-34); Mean Corpuscular Volume 88 fl (79-97); Monocytes # (Auto) 0.4 K/mm3 (0.0-0.8); Monocytes % (Auto) 5.7 % (0.0-7.3); Platelet Count 160 K/mm3 (140-440); Red Blood Count 3.34 M/mm3 (3.65-5.03); Red Cell Distribution Width 14.6 % (13.2-15.2)
[2020-04-05 19:45] LABS: INR 1.13 (0.87-1.13)
[2020-04-05 19:46] LABS: Partial Thromboplastin Time 24.9 Sec. (24.2-36.6)
--- NOTE | 2020-04-05 21:10 | Consultation ---
Consult Note - Parent Education I met with parent(s) and discussed the following:: Need for NICU admission, Poss ible need for intubation and surfactant or other resp support, Temperature regulation, Possible need for IV fluids/TPN and IV antibiotics, Possible need for umbilical lines, Importance of providing breast milk & encouraged pumping aft delivery, Donor breast milk if baby meets criteria after , Slow feeding advancement and monitoring of tolerance. NG/OG feeds, Need to monitor for jaundice, Data for survival & survival without significant co-morbidities Parent(s) demonstrated understanding of all the information:: Yes Assessment and Plan - Assessment Gestation:: 33.3 - Plan Plan: Agree with Mag & steroids Will attend delivery Please call NICU with questions
[2020-04-05] MEDS: BETAMET ACET/BETAMET NA PH 6 MG/ML INJ 5 ML MDV IM SCH (22:00)
[2020-04-05] MEDS: NIFEdipine*For Tocolysis only* 10 MG CAPSULE PO SCH (22:02)
[2020-04-05] MEDS: LACTATED RINGERS 1,000 ML IV SCH (22:03)
[2020-04-06] MEDS ORDERED: ALUM-MAG HYDROXIDE-SIMETHICONE 200-200-20MG/5ML ORAL LIQD 30 ML PO PRN (01:00)
[2020-04-06] MEDS ORDERED: CALCIUM CARBONATE 500 MG TAB CHEW PO ONE (01:15)
[2020-04-06] MEDS: INSULIN REGULAR, HUMAN 100 UNIT/ML 3ML VIAL SUB-Q SCH ×4 (02:19→23:01)
[2020-04-06] MEDS: NIFEdipine*For Tocolysis only* 10 MG CAPSULE PO SCH ×2 (02:36→07:57)
[2020-04-06] MEDS: LACTATED RINGERS 1,000 ML IV SCH (06:01)
[2020-04-06] MEDS: metFORMIN 500 MG TAB PO SCH ×3 (07:58→17:03)
--- NOTE | 2020-04-06 10:11 | Progress Note ---
Assessment and Plan - Patient Problems (1) contractions Current Visit: Yes Status: Acute Plan to address problem: --Improved on nifedipine, Continue on Nifedipine 10mg q6hr for tocolysis (2) Vaginal bleeding in Current Visit: Yes Status: Acute Plan to address problem: --Single episode. Since resolved. Abruption labs wnl. EFM wnl and patient feeling normal movement. Continue to monitor. (3) Elevated blood pressure affecting in third trimester, antepartum Current Visit: Yes Status: Acute Plan to address problem: --Given mildly elevated, increase labetolol 100mg from BID to TID, 24H TP pending. S/p steriods x 2 doses. S/p magnesium for neuroprotection. Amp if evidence of labor. On low dose asprin given hx of SPE. (4) Diabetes in Current Visit: Yes Status: Acute (5) Depression affecting Current Visit: Yes Status: Acute (6) Genital lesion, female Current Visit: Yes Status: Acute Subjective - Subjective Date of service: 04/06/20 Principal diagnosis: elevated blood pressures Interval history: Now getting 24H TP. BPs mildly elevated. s/p steriods x 2. S/p magnesium. On labetolol 100mg BID for elevated BPs. Reports contractions improved now on nifedipine. No labor complaints. No further vaginal bleeding s/p single episode. Patient reports: vaginal bleeding (with clot passage, since resolved) Objective - Vital Signs Vital Signs: Vital Signs - 12hr 04/05/20 04/05/20 04/05/20 22:09 22:14 22:19 Temperature Pulse Rate 100 H 100 H 103 H Respiratory Rate Blood Pressure O2 Sat by Pulse 100 100 100 Oximetry 04/05/20 04/05/20 04/05/20 22:24 22:29 22:34 Temperature Pulse Rate 103 H 100 H 103 H Respiratory Rate Blood Pressure O2 Sat by Pulse 100 100 100 Oximetry 04/05/20 04/05/20 04/05/20 22:39 22:44 22:49 Temperature Pulse Rate 105 H 102 H 103 H Respiratory Rate Blood Pressure O2 Sat by Pulse 100 100 100 Oximetry 04/05/20 04/05/20 04/05/20 22:52 22:54 22:59 Temperature Pulse Rate 100 H 97 H 96 H Respiratory Rate Blood Pressure 140/71 O2 Sat by Pulse 100 100 Oximetry 11/04/05/20 04/05/20 23:04 23:09 23:14 Temperature Pulse Rate 107 H 109 H 104 H Respiratory Rate Blood Pressure O2 Sat by Pulse 100 100 100 Oximetry 04/05/20 04/05/20 04/05/20 23:19 23:21 23:23 Temperature Pulse Rate 103 H 100 H 93 H Respiratory Rate Blood Pressure 164/84 134/65 O2 Sat by Pulse 100 Oximetry 04/05/20 04/05/20 04/05/20 23:24 23:29 23:34 Temperature Pulse Rate 98 H 91 H 107 H Respiratory Rate Blood Pressure O2 Sat by Pulse 100 100 100 Oximetry 04/05/20 04/05/20 04/05/20 23:39 23:44 23:49 Temperature Pulse Rate 95 H 101 H 107 H Respiratory Rate Blood Pressure O2 Sat by Pulse 100 99 99 Oximetry 04/05/20 04/05/20 04/05/20 23:53 23:54 23:59 Temperature Pulse Rate 100 H 98 H 112 H Respiratory Rate Blood Pressure 144/77 O2 Sat by Pulse 100 99 Oximetry 04/06/20 04/06/20 04/06/20 00:04 00:09 00:14 Temperature Pulse Rate 109 H 101 H 101 H Respiratory Rate Blood Pressure O2 Sat by Pulse 99 99 98 Oximetry 04/06/20 04/06/20 04/06/20 00:19 00:24 00:29 Temperature Pulse Rate 100 H 109 H 95 H Respiratory Rate Blood Pressure O2 Sat by Pulse 98 99 98 Oximetry 04/06/20 04/06/20 04/06/20 00:34 00:39 00:44 Temperature Pulse Rate 101 H 96 H 93 H Respiratory Rate Blood Pressure O2 Sat by Pulse 97 99 99 Oximetry 04/06/20 04/06/20 04/06/20 00:49 00:52 00:54 Temperature Pulse Rate 89 86 90 Respiratory Rate Blood Pressure 118/59 O2 Sat by Pulse 98 99 Oximetry 04/06/20 04/06/20 04/06/20 00:59 01:04 01:09 Temperature Pulse Rate 97 H 87 103 H Respiratory Rate Blood Pressure O2 Sat by Pulse 99 98 99 Oximetry 04/06/20 04/06/20 04/06/20 01:14 01:19 01:24 Temperature Pulse Rate 99 H 93 H 96 H Respiratory Rate Blood Pressure O2 Sat by Pulse 99 99 98 Oximetry 04/06/20 04/06/20 04/06/20 01:29 01:34 01:39 Temperature Pulse Rate 97 H 99 H 102 H Respiratory Rate Blood Pressure O2 Sat by Pulse 97 97 97 Oximetry 04/06/20 04/06/20 04/06/20 01:44 01:49 01:53 Temperature Pulse Rate 98 H 100 H 98 H Respiratory Rate Blood Pressure 119/64 O2 Sat by Pulse 97 97 Oximetry 04/06/20 04/06/20 04/06/20 01:54 01:59 02:04 Temperature Pulse Rate 99 H 102 H 100 H Respiratory Rate Blood Pressure O2 Sat by Pulse 97 97 97 Oximetry 04/06/20 04/06/20 04/06/20 02:09 02:14 02:19 Temperature Pulse Rate 99 H 98 H 106 H Respiratory Rate Blood Pressure O2 Sat by Pulse 99 98 99 Oximetry 04/06/20 04/06/20 04/06/20 02:24 02:29 02:34 Temperature Pulse Rate 99 H 97 H 101 H Respiratory Rate Blood Pressure O2 Sat by Pulse 98 98 98 Oximetry 04/06/20 04/06/20 04/06/20 02:39 02:44 02:49 Temperature Pulse Rate 109 H 94 H 104 H Respiratory Rate Blood Pressure O2 Sat by Pulse 98 99 99 Oximetry 04/06/20 04/06/20 04/06/20 02:52 02:54 02:59 Temperature Pulse Rate 99 H 101 H 103 H Respiratory Rate Blood Pressure 135/69 O2 Sat by Pulse 97 97 Oximetry 04/06/20 04/06/20 04/06/20 03:04 03:09 03:14 Temperature Pulse Rate 106 H 110 H 107 H Respiratory Rate Blood Pressure O2 Sat by Pulse 96 96 96 Oximetry 04/06/20 04/06/20 04/06/20 03:19 03:24 03:29 Temperature Pulse Rate 107 H 106 H 105 H Respiratory Rate Blood Pressure O2 Sat by Pulse 97 96 98 Oximetry 04/06/20 04/06/20 04/06/20 03:34 03:39 03:44 Temperature Pulse Rate 103 H 122 H 109 H Respiratory Rate Blood Pressure O2 Sat by Pulse 96 98 97 Oximetry 04/06/20 04/06/20 04/06/20 03:49 03:52 03:54 Temperature Pulse Rate 111 H 111 H 107 H Respiratory Rate Blood Pressure 123/64 O2 Sat by Pulse 97 96 Oximetry 04/06/20 04/06/20 04/06/20 03:59 04:04 04:09 Temperature Pulse Rate 103 H 108 H 103 H Respiratory Rate Blood Pressure O2 Sat by Pulse 97 97 97 Oximetry 04/06/20 04/06/20 04/06/20 04:14 04:19 04:24 Temperature Pulse Rate 103 H 104 H 104 H Respiratory Rate Blood Pressure O2 Sat by Pulse 97 97 97 Oximetry 04/06/20 04/06/20 04/06/20 04:29 04:34 04:39 Temperature Pulse Rate 101 H 102 H 104 H Respiratory Rate Blood Pressure O2 Sat by Pulse 97 97 97 Oximetry 04/06/20 04/06/20 04/06/20 04:44 04:49 04:53 Temperature Pulse Rate 101 H 96 H 104 H Respiratory Rate Blood Pressure 137/74 O2 Sat by Pulse 97 98 Oximetry 04/06/20 04/06/20 04/06/20 04:54 04:59 05:04 Temperature Pulse Rate 99 H 95 H 99 H Respiratory Rate Blood Pressure O2 Sat by Pulse 98 99 98 Oximetry 04/06/20 04/06/20 04/06/20 05:09 05:14 05:19 Temperature Pulse Rate 109 H 104 H 107 H Respiratory Rate Blood Pressure O2 Sat by Pulse 98 98 98 Oximetry 04/06/20 04/06/20 04/06/20 05:24 05:29 05:34 Temperature Pulse Rate 109 H 105 H 106 H Respiratory Rate Blood Pressure O2 Sat by Pulse 97 97 98 Oximetry 04/06/20 04/06/20 04/06/20 05:39 05:44 05:49 Temperature Pulse Rate 104 H 113 H 105 H Respiratory Rate Blood Pressure O2 Sat by Pulse 98 97 97 Oximetry 04/06/20 04/06/20 04/06/20 05:52 05:54 05:59 Temperature Pulse Rate 100 H 105 H 106 H Respiratory Rate Blood Pressure 133/72 O2 Sat by Pulse 98 98 Oximetry 04/06/20 04/06/20 04/06/20 06:04 06:09 06:14 Temperature Pulse Rate 106 H 107 H 110 H Respiratory Rate Blood Pressure O2 Sat by Pulse 98 99 98 Oximetry 04/06/20 04/06/20 04/06/20 06:19 06:24 06:29 Temperature Pulse Rate 116 H 107 H 96 H Respiratory Rate Blood Pressure O2 Sat by Pulse 99 99 99 Oximetry 04/06/20 04/06/20 04/06/20 06:34 06:39 06:44 Temperature Pulse Rate 97 H 103 H 99 H Respiratory Rate Blood Pressure O2 Sat by Pulse 99 99 99 Oximetry 04/06/20 04/06/20 04/06/20 06:49 06:52 06:54 Temperature Pulse Rate 102 H 96 H 97 H Respiratory Rate Blood Pressure 138/77 O2 Sat by Pulse 98 98 Oximetry 04/06/20 04/06/20 04/06/20 06:59 07:04 07:09 Temperature Pulse Rate 99 H 98 H 101 H Respiratory Rate Blood Pressure O2 Sat by Pulse 100 98 98 Oximetry 04/06/20 04/06/20 04/06/20 07:14 07:19 07:24 Temperature Pulse Rate 91 H 97 H 100 H Respiratory Rate Blood Pressure O2 Sat by Pulse 99 99 98 Oximetry 04/06/20 04/06/20 04/06/20 07:29 07:34 07:39 Temperature Pulse Rate 101 H 105 H 103 H Respiratory Rate Blood Pressure O2 Sat by Pulse 99 99 99 Oximetry 04/06/20 04/06/20 04/06/20 07:44 07:49 07:53 Temperature Pulse Rate 104 H 86 95 H Respiratory Rate Blood Pressure 144/78 O2 Sat by Pulse 99 100 Oximetry 04/06/20 04/06/20 04/06/20 07:54 07:58 07:59 Temperature 99 F Pulse Rate 96 H 101 H Respiratory 16 Rate Blood Pressure O2 Sat by Pulse 99 99 Oximetry 04/06/20 04/06/20 04/06/20 08:04 08:09 08:14 Temperature Pulse Rate 88 93 H 101 H Respiratory Rate Blood Pressure O2 Sat by Pulse 100 100 99 Oximetry 04/06/20 04/06/20 04/06/20 08:19 08:24 08:29 Temperature Pulse Rate 100 H 90 106 H Respiratory Rate Blood Pressure O2 Sat by Pulse 99 100 99 Oximetry 04/06/20 04/06/20 04/06/20 08:34 08:39 08:44 Temperature Pulse Rate 93 H 92 H 93 H Respiratory Rate Blood Pressure O2 Sat by Pulse 100 100 100 Oximetry 04/06/20 04/06/20 04/06/20 08:49 08:52 08:54 Temperature Pulse Rate 101 H 96 H 105 H Respiratory Rate Blood Pressure 141/76 O2 Sat by Pulse 100 100 Oximetry 04/06/20 04/06/20 04/06/20 08:59 09:04 09:09 Temperature Pulse Rate 99 H 99 H 107 H Respiratory Rate Blood Pressure O2 Sat by Pulse 100 99 99 Oximetry 04/06/20 04/06/20 04/06/20 09:14 09:19 09:24 Temperature Pulse Rate 111 H 110 H 109 H Respiratory Rate Blood Pressure O2 Sat by Pulse 99 98 98 Oximetry 04/06/20 04/06/20 04/06/20 09:29 09:34 09:39 Temperature Pulse Rate 112 H 118 H 109 H Respiratory Rate Blood Pressure O2 Sat by Pulse 98 99 99 Oximetry 04/06/20 04/06/20 04/06/20 09:44 09:49 09:53 Temperature Pulse Rate 109 H 103 H 94 H Respiratory Rate Blood Pressure 141/80 O2 Sat by Pulse 100 100 Oximetry 04/06/20 04/06/20 04/06/20 09:54 09:59 10:04 Temperature Pulse Rate 102 H 109 H 103 H Respiratory Rate Blood Pressure O2 Sat by Pulse 100 99 97 Oximetry - Exam Abdomen: Present: normal appearance, normal bowel sounds FHR: category 1 Uterine Contraction Monitor Mode: External Extremities: normal - Labs Labs: Abnormal Labs 04/04/20 04/04/20 04/04/20 18:54 18:54 18:54 RBC Hgb Hct MCHC 35 H Lymph # (Auto) Seg Neutrophils % D-Dimer Sodium 135 L Potassium 3.5 L BUN 4 L Creatinine 0.5 L 0.5 L POC Glucose Magnesium Albumin 3.6 L 04/05/20 04/05/20 04/05/20 03:10 03:42 12:56 RBC Hgb Hct MCHC Lymph # (Auto) Seg Neutrophils % D-Dimer Sodium Potassium BUN Creatinine POC Glucose 178 H 170 H Magnesium 4.50 H Albumin 04/05/20 04/05/20 04/05/20 15:00 18:38 19:07 RBC Hgb Hct MCHC Lymph # (Auto) Seg Neutrophils % D-Dimer Sodium Potassium BUN Creatinine POC Glucose 253 H Magnesium 4.60 H 3.90 H Albumin 04/05/20 04/05/20 04/05/20 19:07 19:07 22:48 RBC 3.34 L Hgb 10.0 L Hct 29.2 L MCHC Lymph # (Auto) 1.1 L Seg Neutrophils % 80.1 H D-Dimer 1008.11 H Sodium Potassium BUN Creatinine POC Glucose 210 H Magnesium Albumin 04/06/20 04/06/20 02:27 06:16 RBC Hgb Hct MCHC Lymph # (Auto) Seg Neutrophils % D-Dimer Sodium Potassium BUN Creatinine POC Glucose 194 H 194 H Magnesium Albumin Laboratory Results - last 24 hr 04/05/20 04/05/20 04/05/20 12:56 15:00 18:38 WBC RBC Hgb Hct MCV MCH MCHC RDW Plt Count Lymph % (Auto) [place] % (Auto) Eos % (Auto) Baso % (Auto) Lymph # (Auto) [place] # (Auto) Eos # (Auto) Baso # (Auto) Seg Neutrophils % Seg Neutrophils # PT INR APTT Fibrinogen D-Dimer POC Glucose 170 H 253 H Magnesium 4.60 H KB % Cells 04/05/20 04/05/20 04/05/20 19:07 19:07 19:07 WBC 7.6 RBC 3.34 L Hgb 10.0 L Hct 29.2 L MCV 88 MCH 30 MCHC 34 RDW 14.6 Plt Count 160 Lymph % (Auto) 14.1 [place] % (Auto) 5.7 Eos % (Auto) 0.0 Baso % (Auto) 0.1 Lymph # (Auto) 1.1 L [place] # (Auto) 0.4 Eos # (Auto) 0.0 Baso # (Auto) 0.0 Seg Neutrophils % 80.1 H Seg Neutrophils # 6.1 PT 14.6 INR 1.13 APTT 24.9 Fibrinogen 386 D-Dimer 1008.11 H POC Glucose Magnesium 3.90 H KB % Cells 04/05/20 04/05/20 04/06/20 22:48 Unknown 02:27 WBC RBC Hgb Hct MCV MCH MCHC RDW Plt Count Lymph % (Auto) [place] % (Auto) Eos % (Auto) Baso % (Auto) Lymph # (Auto) [place] # (Auto) Eos # (Auto) Baso # (Auto) Seg Neutrophils % Seg Neutrophils # PT INR APTT Fibrinogen D-Dimer POC Glucose 210 H 194 H Magnesium KB % Cells Negative 04/06/20 04/06/20 06:16 07:06 WBC RBC Hgb Hct MCV MCH MCHC RDW Plt Count Lymph % (Auto) [place] % (Auto) Eos % (Auto) Baso % (Auto) Lymph # (Auto) [place] # (Auto) Eos # (Auto) Baso # (Auto) Seg Neutrophils % Seg Neutrophils # PT INR APTT Fibrinogen D-Dimer POC Glucose 194 H Magnesium 2.20 KB % Cells
[2020-04-06] MEDS: valACYclovir 500 MG TAB PO SCH ×2 (10:42→23:02)
[2020-04-06 16:32] LABS: Creatinine 24 Hour,Urine 1.5 (0.8-2.8); Creatinine,Urine 23.3 mg/dL (0.1-20.0)
[2020-04-07] MEDS: INSULIN REGULAR, HUMAN 100 UNIT/ML 3ML VIAL SUB-Q SCH ×4 (02:30→19:15)
[2020-04-07] MEDS: metFORMIN 500 MG TAB PO SCH ×3 (08:25→17:55)
[2020-04-07] MEDS: valACYclovir 500 MG TAB PO SCH ×2 (10:27→22:03)
--- NOTE | 2020-04-07 15:15 | Ultrasound Report ---
ULTRASOUND BIOPHYSICAL PROFILE INDICATION / CLINICAL INFORMATION: absent variability. Clinical Gestational Age (GA) in weeks, days: 33, 5 TECHNIQUE: Transabdominal. COMPARISON: Ultrasound dated 04/04/20 FINDINGS: BREATHING MOVEMENT = 2 GROSS BODY MOVEMENT = 2 TONE = 2 QUALITATIVE AMNIOTIC FLUID VOLUME = 2 TOTAL BIOPHYSICAL SCORE = 8/8 HEART RATE (beats per minute): 137 ADDITIONAL FINDINGS: None. IMPRESSION: 1. Biophysical Score = 8/8 Signer Name: Natanael Marino MD Signed: 04/07/2020 3:14 PM Workstation Name: [id number]
--- NOTE | 2020-04-07 15:56 | Progress Note ---
Assessment and Plan - Patient Problems (1) Preeclampsia Current Visit: Yes Status: Acute Plan to address problem: PT is steroid complete. BPP today is 8/8. Case d/w [facility] today and they recommend delivery at 34 weeks. PT is 33w 5d today. 24 hr urine prot is 845. Cont to watch BPs closely. PT had a few elevated BPs this afternoon per charting but last one improved with 160/77. RN mentioned some issues with her arm positioning this afternoon leading to those elevated afternoon BPs. (2) Diabetes in Current Visit: Yes Status: Acute Plan to address problem: Cont Metformin and insulin sliding scale. BGs elevation recently likely from recent steroids. (3) Genital lesion, female Current Visit: Yes Status: Acute Plan to address problem: HSV cx results still pending Subjective - Subjective Date of service: 04/07/20 Principal diagnosis: elevated blood pressures Patient reports: movement normal, other, no contractions (PT doing well. No preeclamptic sxs. ) Objective - Vital Signs Vital Signs: Vital Signs - 12hr 04/07/20 04/07/20 04/07/20 06:09 06:11 06:12 Temperature Pulse Rate 93 H 93 H 93 H Respiratory Rate Blood Pressure 150/68 150/68 150/68 04/07/20 04/07/20 04/07/20 08:00 08:26 08:27 Temperature 98 F Pulse Rate 82 75 Respiratory 20 Rate Blood Pressure 211/92 143/67 04/07/20 04/07/20 04/07/20 10:25 12:25 12:28 Temperature Pulse Rate 90 87 86 Respiratory Rate Blood Pressure 138/63 188/84 146/65 04/07/20 04/07/20 04/07/20 14:26 14:33 14:35 Temperature Pulse Rate 68 92 H 92 H Respiratory Rate Blood Pressure 184/77 172/80 172/80 - Exam FHR comments: decreased LTV earlier today. No decels Uterine Contraction Pattern: Absent - Labs Labs: Abnormal Labs 04/04/20 04/04/20 04/04/20 18:54 18:54 18:54 RBC Hgb Hct MCHC 35 H Lymph # (Auto) Seg Neutrophils % D-Dimer Sodium 135 L Potassium 3.5 L BUN 4 L Creatinine 0.5 L 0.5 L POC Glucose Magnesium Albumin 3.6 L Urine Creatinine Ur Total Protein 24 Hr Urine Total Protein 04/05/20 04/05/20 04/05/20 03:10 03:42 12:56 RBC Hgb Hct MCHC Lymph # (Auto) Seg Neutrophils % D-Dimer Sodium Potassium BUN Creatinine POC Glucose 178 H 170 H Magnesium 4.50 H Albumin Urine Creatinine Ur Total Protein 24 Hr Urine Total Protein 04/05/20 04/05/20 04/05/20 15:00 18:38 19:07 RBC Hgb Hct MCHC Lymph # (Auto) Seg Neutrophils % D-Dimer Sodium Potassium BUN Creatinine POC Glucose 253 H Magnesium 4.60 H 3.90 H Albumin Urine Creatinine Ur Total Protein 24 Hr Urine Total Protein 04/05/20 04/05/20 04/05/20 19:07 19:07 22:48 RBC 3.34 L Hgb 10.0 L Hct 29.2 L MCHC Lymph # (Auto) 1.1 L Seg Neutrophils % 80.1 H D-Dimer 1008.11 H Sodium Potassium BUN Creatinine POC Glucose 210 H Magnesium Albumin Urine Creatinine Ur Total Protein 24 Hr Urine Total Protein 04/06/20 04/06/20 04/06/20 02:27 06:16 10:44 RBC Hgb Hct MCHC Lymph # (Auto) Seg Neutrophils % D-Dimer Sodium Potassium BUN Creatinine POC Glucose 194 H 194 H 212 H Magnesium Albumin Urine Creatinine Ur Total Protein 24 Hr Urine Total Protein 04/06/20 04/06/20 04/06/20 15:23 22:29 Unknown RBC Hgb Hct MCHC Lymph # (Auto) Seg Neutrophils % D-Dimer Sodium Potassium BUN Creatinine POC Glucose 149 H 170 H Magnesium Albumin Urine Creatinine 23.3 H Ur Total Protein 24 Hr 845.00 H Urine Total Protein 13 H 04/07/20 04/07/20 04/07/20 02:35 06:27 11:12 RBC Hgb Hct MCHC Lymph # (Auto) Seg Neutrophils % D-Dimer Sodium Potassium BUN Creatinine POC Glucose 192 H 177 H 202 H Magnesium Albumin Urine Creatinine Ur Total Protein 24 Hr Urine Total Protein 04/07/20 15:03 RBC Hgb Hct MCHC Lymph # (Auto) Seg Neutrophils % D-Dimer Sodium Potassium BUN Creatinine POC Glucose 120 H Magnesium Albumin Urine Creatinine Ur Total Protein 24 Hr Urine Total Protein Laboratory Results - last 24 hr 04/06/20 04/06/20 04/06/20 17:34 18:29 22:29 POC Glucose 100 170 H Magnesium 1.80 Urine Total Volume Urine Creatinine Ur Creatinine 24 Hour Ur Total Protein 24 Hr Urine Total Protein 04/06/20 04/07/20 04/07/20 Unknown 02:35 06:27 POC Glucose 192 H 177 H Magnesium Urine Total Volume 6500 Urine Creatinine 23.3 H Ur Creatinine 24 Hour 1.5 Ur Total Protein 24 Hr 845.00 H Urine Total Protein 13 H 04/07/20 04/07/20 11:12 15:03 POC Glucose 202 H 120 H Magnesium Urine Total Volume Urine Creatinine Ur Creatinine 24 Hour Ur Total Protein 24 Hr Urine Total Protein
[2020-04-07] MEDS ORDERED: CALCIUM CARBONATE 500 MG TAB CHEW PO PRN (17:33)
[2020-04-07] MEDS ORDERED: hydrALAZINE 10 MG TAB PO ONE (18:00)
[2020-04-07] MEDS: hydrALAZINE 20 MG/1 ML INJ IV PRN (19:49)
[2020-04-08] MEDS: ACETAMINOPHEN 325 MG TAB PO PRN (01:23)
[2020-04-08] MEDS: INSULIN REGULAR, HUMAN 100 UNIT/ML 3ML VIAL SUB-Q SCH ×2 (06:19→12:33)
[2020-04-08] MEDS: metFORMIN 500 MG TAB PO SCH ×3 (08:14→18:11)
[2020-04-08] MEDS: valACYclovir 500 MG TAB PO SCH ×2 (10:05→22:26)
--- NOTE | 2020-04-08 12:09 | Progress Note ---
Assessment and Plan - Patient Problems (1) Preeclampsia Current Visit: Yes Status: Acute Plan to address problem: stable at 33.6 weeks. Per [facility] recommendation, plan on delivery tomorrow when she will be 34 weeks. (2) Diabetes in Current Visit: Yes Status: Acute Plan to address problem: BG's improved overnight vs yesterday. Cont Metformin and insulin sliding scale. (3) Genital lesion, female Current Visit: Yes Status: Acute Plan to address problem: HSV cx result still pending. Subjective - Subjective Date of service: 04/08/20 (33w 6d) Principal diagnosis: elevated blood pressures Patient reports: movement normal, no loss of fluid, no vaginal bleeding, no contractions (PT doing well. No preeclamptic sxs. She had a PEARL last night that resolved with Tylenol.) Objective - Vital Signs Vital Signs: Vital Signs - 12hr 04/08/20 04/08/20 04/08/20 00:24 00:54 01:23 Temperature Pulse Rate 88 98 H Respiratory 18 Rate Blood Pressure 146/72 158/76 O2 Sat by Pulse Oximetry 04/08/20 04/08/20 04/08/20 01:24 01:54 02:24 Temperature Pulse Rate 75 81 79 Respiratory Rate Blood Pressure 150/76 141/63 154/69 O2 Sat by Pulse Oximetry 04/08/20 04/08/20 04/08/20 02:54 03:24 03:54 Temperature Pulse Rate 70 84 71 Respiratory Rate Blood Pressure 144/63 146/65 114/53 O2 Sat by Pulse Oximetry 04/08/20 04/08/20 04/08/20 04:25 04:54 05:24 Temperature Pulse Rate 67 64 69 Respiratory Rate Blood Pressure 172/77 164/74 184/79 O2 Sat by Pulse Oximetry 04/08/20 04/08/20 04/08/20 05:54 06:12 06:13 Temperature Pulse Rate 82 77 63 Respiratory Rate Blood Pressure 141/69 174/72 199/87 O2 Sat by Pulse Oximetry 04/08/20 04/08/20 04/08/20 06:15 06:21 06:24 Temperature 98.3 F Pulse Rate 77 67 Respiratory 18 Rate Blood Pressure 174/72 159/78 O2 Sat by Pulse Oximetry 04/08/20 04/08/20 04/08/20 06:54 07:19 07:28 Temperature 98.1 F Pulse Rate 83 72 Respiratory 18 Rate Blood Pressure 166/79 167/91 O2 Sat by Pulse Oximetry 04/08/20 04/08/20 04/08/20 08:18 08:25 08:29 Temperature Pulse Rate 66 68 65 Respiratory Rate Blood Pressure 191/76 135/60 142/64 O2 Sat by Pulse Oximetry 04/08/20 04/08/20 04/08/20 08:35 08:40 08:45 Temperature Pulse Rate 67 76 85 Respiratory Rate Blood Pressure 132/63 127/60 135/106 O2 Sat by Pulse Oximetry 04/08/20 04/08/20 04/08/20 08:50 08:57 09:00 Temperature Pulse Rate 84 67 68 Respiratory Rate Blood Pressure 156/72 161/77 158/74 O2 Sat by Pulse Oximetry 04/08/20 04/08/20 04/08/20 09:05 09:11 09:15 Temperature Pulse Rate 71 71 85 Respiratory Rate Blood Pressure 130/67 173/73 145/69 O2 Sat by Pulse Oximetry 04/08/20 04/08/20 04/08/20 09:21 09:24 09:31 Temperature Pulse Rate 85 88 84 Respiratory Rate Blood Pressure 133/63 126/56 135/61 O2 Sat by Pulse Oximetry 04/08/20 04/08/20 04/08/20 09:34 09:41 09:44 Temperature Pulse Rate 92 H 89 100 H Respiratory Rate Blood Pressure 142/66 128/63 117/57 O2 Sat by Pulse Oximetry 04/08/20 04/08/20 04/08/20 09:50 09:55 10:00 Temperature Pulse Rate 93 H 83 88 Respiratory Rate Blood Pressure 136/59 124/58 136/61 O2 Sat by Pulse Oximetry 04/08/20 04/08/20 04/08/20 10:04 10:10 10:15 Temperature Pulse Rate 75 97 H 85 Respiratory Rate Blood Pressure 140/65 121/59 156/84 O2 Sat by Pulse Oximetry 04/08/20 04/08/20 04/08/20 10:20 10:57 11:27 Temperature Pulse Rate 88 75 81 Respiratory Rate Blood Pressure 151/73 121/56 150/67 O2 Sat by Pulse Oximetry 04/08/20 04/08/20 04/08/20 11:36 11:41 11:46 Temperature Pulse Rate 86 80 94 H Respiratory Rate Blood Pressure O2 Sat by Pulse 100 99 99 Oximetry 04/08/20 04/08/20 04/08/20 11:51 11:56 12:01 Temperature Pulse Rate 79 80 82 Respiratory Rate Blood Pressure O2 Sat by Pulse 100 99 99 Oximetry - Exam FHR: category 1 FHR comments: much improved LTV vs yesterday - Labs Labs: Abnormal Labs 04/04/20 04/04/20 04/04/20 18:54 18:54 18:54 RBC Hgb Hct MCHC 35 H Lymph # (Auto) Seg Neutrophils % D-Dimer Sodium 135 L Potassium 3.5 L BUN 4 L Creatinine 0.5 L 0.5 L POC Glucose Magnesium Albumin 3.6 L Urine Creatinine Ur Total Protein 24 Hr Urine Total Protein 04/05/20 04/05/20 04/05/20 03:10 03:42 12:56 RBC Hgb Hct MCHC Lymph # (Auto) Seg Neutrophils % D-Dimer Sodium Potassium BUN Creatinine POC Glucose 178 H 170 H Magnesium 4.50 H Albumin Urine Creatinine Ur Total Protein 24 Hr Urine Total Protein 04/05/20 04/05/20 04/05/20 15:00 18:38 19:07 RBC Hgb Hct MCHC Lymph # (Auto) Seg Neutrophils % D-Dimer Sodium Potassium BUN Creatinine POC Glucose 253 H Magnesium 4.60 H 3.90 H Albumin Urine Creatinine Ur Total Protein 24 Hr Urine Total Protein 04/05/20 04/05/20 04/05/20 19:07 19:07 22:48 RBC 3.34 L Hgb 10.0 L Hct 29.2 L MCHC Lymph # (Auto) 1.1 L Seg Neutrophils % 80.1 H D-Dimer 1008.11 H Sodium Potassium BUN Creatinine POC Glucose 210 H Magnesium Albumin Urine Creatinine Ur Total Protein 24 Hr Urine Total Protein 04/06/20 04/06/20 04/06/20 02:27 06:16 10:44 RBC Hgb Hct MCHC Lymph # (Auto) Seg Neutrophils % D-Dimer Sodium Potassium BUN Creatinine POC Glucose 194 H 194 H 212 H Magnesium Albumin Urine Creatinine Ur Total Protein 24 Hr Urine Total Protein 04/06/20 04/06/20 04/06/20 15:23 22:29 Unknown RBC Hgb Hct MCHC Lymph # (Auto) Seg Neutrophils % D-Dimer Sodium Potassium BUN Creatinine POC Glucose 149 H 170 H Magnesium Albumin Urine Creatinine 23.3 H Ur Total Protein 24 Hr 845.00 H Urine Total Protein 13 H 04/07/20 04/07/20 04/07/20 02:35 06:27 11:12 RBC Hgb Hct MCHC Lymph # (Auto) Seg Neutrophils % D-Dimer Sodium Potassium BUN Creatinine POC Glucose 192 H 177 H 202 H Magnesium Albumin Urine Creatinine Ur Total Protein 24 Hr Urine Total Protein 04/07/20 04/07/20 04/08/20 15:03 19:19 06:35 RBC Hgb Hct MCHC Lymph # (Auto) Seg Neutrophils % D-Dimer Sodium Potassium BUN Creatinine POC Glucose 120 H 116 H 117 H Magnesium Albumin Urine Creatinine Ur Total Protein 24 Hr Urine Total Protein 04/08/20 10:24 RBC Hgb Hct MCHC Lymph # (Auto) Seg Neutrophils % D-Dimer Sodium Potassium BUN Creatinine POC Glucose 194 H Magnesium Albumin Urine Creatinine Ur Total Protein 24 Hr Urine Total Protein Laboratory Results - last 24 hr 04/07/20 04/07/20 04/08/20 15:03 19:19 06:35 POC Glucose 120 H 116 H 117 H 04/08/20 10:24 POC Glucose 194 H
--- NOTE | 2020-04-08 15:01 | Consultation ---
History of Present Illness Consult date: 04/08/20 Reason for consult: gestational hypertension History of present illness: Indication for Admission: IUP at 33 weeks 6 days gestation Rule out preeclampsia. Labile blood pressure Admitted due elevated blood pressure. Due to labile blood pressure the patient is not a candidate for Recommend delivery rather than expectant management. CURRENT PRESENTATION: Thank you for your recent consultation regarding the above named patient. As you are aware, this is a 34 year old patient at 33 weeks 6 days (based on an ANNALEE of 05/21/20) who is currently due to an IUP and preeclampsia. Past History Past Medical History: other (type 2 diabetes, depression, history of preeclampsia) Past Surgical History: no surgical history [employer]IN[employer]ER History: denies: chlamydia, gonorrhea, hepatitis B, hepatitis C, herpes, HIV, syphilis, trichomonas Family/Genetic History: diabetes, heart disease, cancer - Obstetrical History : 4 Medications and Allergies Allergies Allergy/AdvReac Type Severity Reaction Status Date / Time Penicillins Allergy Swelling Verified 04/04/20 18:02 Home Medications Medication Instructions Recorded Confirmed Last Taken Type Aspirin [Aspirin BABY CHEW TAB] 81 mg PO DAILY 04/04/20 04/04/20 04/03/20 23:00 History Glipizide/Metformin HCl 1 each PO TID 04/04/20 04/04/20 04/04/20 11:30 History [glipiZIDE-Metformin 5-500 mg] Vit-Fe Fumar-FA [ 1 tab PO QDAY 04/04/20 04/04/20 04/03/20 23:00 History Vitamin] Sertraline [Zoloft] 25 mg PO QDAY 04/04/20 04/04/20 04/03/20 23:00 History labetaloL [Labetalol 100mg TAB] 300 mg PO Q8HR #90 tablet 04/06/20 Unknown Rx Active Meds: Active Medications Acetaminophen (Tylenol) 650 mg PO Q4H PRN PRN Reason: Pain, Mild (1-3) Last Admin: 04/08/20 01:23 Dose: 650 mg Documented by: Al Hydrox/Mg Hydrox/Simethicone (Alum-Mag Hydrox-Simeth [phone]/5ml) 30 ml PO Q4H PRN PRN Reason: Indigestion Last Admin: 04/07/20 17:55 Dose: 30 ml Documented by: Calcium Carbonate/Glycine (Tums) 500 mg PO Q4H PRN PRN Reason: Indigestion Dextrose (D50w (25gm) Syringe) 0 ml IV Q30MIN PRN; Protocol PRN Reason: Hypoglycemia Hydralazine HCl (Apresoline) 10 mg IV Q30MIN PRN PRN Reason: Hypertension Last Admin: 04/07/20 19:49 Dose: 10 mg Documented by: Lactated Ringer's (Lactated Ringers) 1,000 mls @ 125 mls/hr IV DIRECT ESAU Last Admin: 04/06/20 06:01 Dose: 125 mls/hr Documented by: Insulin Human Regular (Humulin R) 0 unit SUB-Q Q6HR ESAU; Protocol Last Admin: 04/08/20 12:33 Dose: 2 unit Documented by: Labetalol HCl (Labetalol) 100 mg PO Q8HR [facility] Last Admin: 04/08/20 14:39 Dose: 100 mg Documented by: Labetalol HCl (Labetalol) 200 mg PO Q8HR [facility] Last Admin: 04/08/20 14:38 Dose: 200 mg Documented by: Metformin HCl (Glucophage) 500 mg PO TIDDIAB [facility] Last Admin: 04/08/20 12:31 Dose: 500 mg Documented by: Valacyclovir HCl (Valtrex) 1,000 mg PO BID [facility] Last Admin: 04/07/20 22:03 Dose: 1,000 mg Documented by: - Vital Signs Vital signs: Vital Signs Pulse BP 100 H 173/81 04/04/20 18:08 04/04/20 18:08 Temp Pulse Resp BP Pulse Ox 98.1 F 79 18 147/95 97 04/08/20 12:00 04/08/20 14:57 04/08/20 07:19 04/08/20 14:39 04/08/20 14:57 Results Result Diagrams: 04/05/20 19:07 04/04/20 18:54 Abnormal lab results 04/07/20 04/08/20 04/08/20 Range/Units 19: 06:35 10:24 POC Glucose 116 H 117 H 194 H (70-105) mg/dL All other labs normal. Assessment and Plan ASSESSMENT IUP at 33 weeks 6 days gestation Chronic hypertension; rule out superimposed preeclampsia. Markedly elevated blood pressure. Admitted due elevated blood pressure Recommend delivery rather than expectant management. DISCUSSION: I've indicated to the patient that there are a number of medical complications which would require early delivery as a general rule for any gestation. I've indicated that unexplained vaginal bleeding, spontaneous labor, - induced hypertension and other complications would require delivery before an elective delivery. I've also indicated the recommendations from the [employer] published in the [employer] committee opinion number 560 regarding early term delivery. As well as recent studies from the Journal Obstetrics and Gynecology published in May [address] Summers et al indicate that for chronic hypertension with signs of severe preeclampsia should be delivered after 34 weeks of gestation. Based on the fact that this patient has preeclampsia and elevated systolic blood pressure we would recommend DELIVERY of this rather than continued expectant management. REFERENCE: Medically indicated late- and early-term deliveries. Committee Opinion No. 560. [employer]. Obstet Gynecol 2013;121:29465. While some management schemes for the patient with induced hypertension recommend observation in order to administer steroids and enhance maturation, this patient currently has at least TWO contraindication to this kind of expectant management of induced hypertension. These include: ____ Liver function abnormalities, and _X__ Poorly controlled BP on outpatient care ____ Neurological or GI symptoms (headache). ____ Abnormal biophysical testing (oligohydramnios) ____ Severe growth restriction ____ heart rate findings consistent with hypoxia/ distress _X__ EGA is greater than 32 weeks gestation RECOMMENDATIONS 1. At 34weeks gestation; it would appear that there LIMITED benefit to an expectant management protocol to prolong gestation in order to improve outcome without increasing maternal morbidity. 2. At present it is NOT necessary to complete a 24 hour urine. 3. In a patient with MILD preeclampsia we recommend DELIVERY at 37 weeks. 4. In a patient with SEVERE preeclampsia we recommend DELIVERY either AT DIAGNOSIS or at 34 weeks gestation. 5. Reference: REFERENCE: Medically indicated late- and early-term deliveries. Committee Opinion No. 560. [employer]. Obstet Gynecol 2013;121:74434. 6. Given her gestational age we would recommend DELIVERY due to superimposed preeclampsia. 7. Observe for improvement in blood pressure. 8. Agree with current antihypertensive medications. 9. Would proceed as follows: 10. Magnesium sulfate for eclampsia prophylaxis if indicated. 11. Strict assessment of urine output rate while hospitalized. 12. Mode of delivery to be based on FHR tracing, past medical history and obstetrical indications But we would recommend delivery by repeat CS in AM. Thank you for allowing us to participate in the care of this patient. We look forward to the opportunity to assist in her continued management. If you have any questions, we may be reached [phone]. Nissa Maria M.D.
[2020-04-08] MEDS ORDERED: ONDANSETRON 4 MG/2 ML INJ IV PRN (21:09)
[2020-04-08] MEDS ORDERED: ONDANSETRON 4 MG/2 ML INJ ONE (21:10)
[2020-04-09] MEDS: LACTATED RINGERS 1,000 ML IV SCH ×4 (04:43→22:58)
[2020-04-09] MEDS: INSULIN REGULAR, HUMAN 100 UNIT/ML 3ML VIAL SUB-Q SCH ×3 (05:52→10:11)
[2020-04-09] MEDS: metFORMIN 500 MG TAB PO SCH ×3 (07:53→18:07)
[2020-04-09] MEDS ORDERED: DINOPROSTONE 10 MG VAG SUPP VG SCH (10:00)
[2020-04-09] MEDS: valACYclovir 500 MG TAB PO SCH ×2 (10:02→21:56)
[2020-04-09] MEDS ORDERED: AMPICILLIN/NS 2 GM/100 ML 2 GM/100 ML BAG IV ONE (11:52)
--- NOTE | 2020-04-09 11:52 | Progress Note ---
Assessment and Plan - Patient Problems (1) Elevated blood pressure affecting in third trimester, antepartum Current Visit: Yes Status: Acute Plan to address problem: --Preeclampsia without severe features for IOL --Continue labetolol 100mg TID. S/p steriods x 2 doses. S/p magnesium for neuroprotection. --Amp for GBS ppx. --Proceed with cervidil for IOL, followed by pitocin after 3+ cm. --Anticipate (2) Diabetes in Current Visit: Yes Status: Acute Plan to address problem: --CBGs per routine. Metformin 500mg TID. (3) Depression affecting Current Visit: Yes Status: Acute Plan to address problem: --Continue home Zoloft (4) Genital lesion, female Current Visit: Yes Status: Acute Plan to address problem: HSV neg in viral culture, proceed with vaginal delivery Subjective - Subjective Principal diagnosis: elevated blood pressures Interval history: Now with preeclampsia at 34 weeks with labile BPs for IOL. BPs mildly elevated intermittently. s/p steriods x 2. S/p magnesium. On labetolol 100mg BID for elevated BPs. Patient is agreeable with IOL. Denies further vaginal bleeding after episode on Sunday. +FM. Denies labor complaints. Denies PIH symptoms. Patient reports: movement normal, no loss of fluid, no vaginal bleeding, no contractions (PT doing well. No preeclamptic sxs. She had a PEARL last night that resolved with Tylenol.) Objective - Vital Signs Vital Signs: Vital Signs - 12hr 04/09/20 04/09/20 04/09/20 00:26 01:05 01:47 Temperature Pulse Rate 82 89 94 H Respiratory Rate Blood Pressure 134/61 136/73 129/65 O2 Sat by Pulse Oximetry 04/09/20 04/09/20 04/09/20 02:25 03:06 03:15 Temperature 97.8 F Pulse Rate 93 H 82 Respiratory Rate Blood Pressure 147/75 143/69 O2 Sat by Pulse Oximetry 04/09/20 04/09/20 04/09/20 03:46 04:26 05:06 Temperature Pulse Rate 97 H 70 77 Respiratory Rate Blood Pressure 120/57 133/63 158/65 O2 Sat by Pulse Oximetry 04/09/20 04/09/20 04/09/20 06:26 07:05 07:13 Temperature Pulse Rate 78 67 67 Respiratory Rate Blood Pressure 185/79 180/77 180/77 O2 Sat by Pulse Oximetry 04/09/20 04/09/20 04/09/20 07:32 07:33 07:37 Temperature 98.7 F Pulse Rate 75 78 Respiratory 20 Rate Blood Pressure O2 Sat by Pulse 99 99 Oximetry 04/09/20 04/09/20 04/09/20 07:42 07:44 07:45 Temperature Pulse Rate 69 74 67 Respiratory Rate Blood Pressure 191/79 137/63 O2 Sat by Pulse 98 Oximetry 04/09/20 04/09/20 04/09/20 07:47 07:52 07:57 Temperature Pulse Rate 70 87 89 Respiratory Rate Blood Pressure O2 Sat by Pulse 99 99 99 Oximetry 04/09/20 04/09/20 04/09/20 08:02 08:07 08:12 Temperature Pulse Rate 90 75 87 Respiratory Rate Blood Pressure O2 Sat by Pulse 99 100 99 Oximetry 04/09/20 04/09/20 04/09/20 08:17 08:22 08:26 Temperature Pulse Rate 82 83 74 Respiratory Rate Blood Pressure 134/61 O2 Sat by Pulse 100 99 Oximetry 04/09/20 04/09/20 04/09/20 08:27 08:32 08:37 Temperature Pulse Rate 77 71 86 Respiratory Rate Blood Pressure O2 Sat by Pulse 99 99 98 Oximetry 04/09/20 04/09/20 04/09/20 08:42 08:47 08:52 Temperature Pulse Rate 88 72 88 Respiratory Rate Blood Pressure O2 Sat by Pulse 99 99 99 Oximetry 04/09/20 04/09/20 04/09/20 08:57 09:02 09:06 Temperature Pulse Rate 87 81 77 Respiratory Rate Blood Pressure 127/60 O2 Sat by Pulse 98 99 Oximetry 04/09/20 04/09/20 04/09/20 09:07 09:12 09:17 Temperature Pulse Rate 78 84 83 Respiratory Rate Blood Pressure O2 Sat by Pulse 98 98 98 Oximetry 04/09/20 04/09/20 04/09/20 09:22 09:27 09:32 Temperature Pulse Rate 82 81 89 Respiratory Rate Blood Pressure O2 Sat by Pulse 98 98 100 Oximetry 04/09/20 04/09/20 04/09/20 09:33 09:39 09:40 Temperature Pulse Rate 75 52 L Respiratory Rate Blood Pressure O2 Sat by Pulse 79 L 79 L 79 L Oximetry 04/09/20 04/09/20 04/09/20 09:44 09:46 09:47 Temperature Pulse Rate 77 71 Respiratory Rate Blood Pressure 133/63 O2 Sat by Pulse 77 L 100 Oximetry 04/09/20 04/09/20 04/09/20 09:52 09:57 10:02 Temperature Pulse Rate 79 89 79 Respiratory Rate Blood Pressure O2 Sat by Pulse 99 99 99 Oximetry 04/09/20 04/09/20 04/09/20 10:07 10:12 10:17 Temperature Pulse Rate 97 H 87 86 Respiratory Rate Blood Pressure O2 Sat by Pulse 100 99 99 Oximetry 04/09/20 04/09/20 04/09/20 10:22 10:25 10:27 Temperature Pulse Rate 75 81 82 Respiratory Rate Blood Pressure 138/82 O2 Sat by Pulse 100 100 Oximetry 04/09/20 04/09/20 04/09/20 10:32 10:37 10:42 Temperature Pulse Rate 76 82 73 Respiratory Rate Blood Pressure O2 Sat by Pulse 100 100 100 Oximetry 04/09/20 04/09/20 04/09/20 10:47 10:52 10:57 Temperature Pulse Rate 86 83 78 Respiratory Rate Blood Pressure O2 Sat by Pulse 100 100 99 Oximetry 04/09/20 04/09/20 04/09/20 11:02 11:05 11:07 Temperature Pulse Rate 85 81 86 Respiratory Rate Blood Pressure 143/65 O2 Sat by Pulse 99 99 Oximetry 04/09/20 04/09/20 04/09/20 11:12 11:17 11:22 Temperature Pulse Rate 88 83 89 Respiratory Rate Blood Pressure O2 Sat by Pulse 99 98 99 Oximetry 04/09/20 04/09/20 04/09/20 11:27 11:32 11:37 Temperature Pulse Rate 79 97 H 96 H Respiratory Rate Blood Pressure O2 Sat by Pulse 99 98 98 Oximetry 04/09/20 04/09/20 11:42 11:46 Temperature Pulse Rate 103 H 98 H Respiratory Rate Blood Pressure 167/77 O2 Sat by Pulse 98 Oximetry - Exam Abdomen: Present: normal appearance, normal bowel sounds FHR: category 1 Uterine Contraction Monitor Mode: External Uterine Contraction Pattern: Irregular - Labs Labs: Abnormal Labs 04/04/20 04/04/20 04/04/20 18:54 18:54 18:54 RBC Hgb Hct MCHC 35 H Lymph # (Auto) Seg Neutrophils % D-Dimer Sodium 135 L Potassium 3.5 L BUN 4 L Creatinine 0.5 L 0.5 L POC Glucose Magnesium Albumin 3.6 L Urine Creatinine Ur Total Protein 24 Hr Urine Total Protein 04/05/20 04/05/20 04/05/20 03:10 03:42 12:56 RBC Hgb Hct MCHC Lymph # (Auto) Seg Neutrophils % D-Dimer Sodium Potassium BUN Creatinine POC Glucose 178 H 170 H Magnesium 4.50 H Albumin Urine Creatinine Ur Total Protein 24 Hr Urine Total Protein 04/05/20 04/05/20 04/05/20 15:00 18:38 19:07 RBC Hgb Hct MCHC Lymph # (Auto) Seg Neutrophils % D-Dimer Sodium Potassium BUN Creatinine POC Glucose 253 H Magnesium 4.60 H 3.90 H Albumin Urine Creatinine Ur Total Protein 24 Hr Urine Total Protein 04/05/20 04/05/20 04/05/20 19:07 19:07 22:48 RBC 3.34 L Hgb 10.0 L Hct 29.2 L MCHC Lymph # (Auto) 1.1 L Seg Neutrophils % 80.1 H D-Dimer 1008.11 H Sodium Potassium BUN Creatinine POC Glucose 210 H Magnesium Albumin Urine Creatinine Ur Total Protein 24 Hr Urine Total Protein 04/06/20 04/06/20 04/06/20 02:27 06:16 10:44 RBC Hgb Hct MCHC Lymph # (Auto) Seg Neutrophils % D-Dimer Sodium Potassium BUN Creatinine POC Glucose 194 H 194 H 212 H Magnesium Albumin Urine Creatinine Ur Total Protein 24 Hr Urine Total Protein 04/06/20 04/06/20 04/06/20 15:23 22:29 Unknown RBC Hgb Hct MCHC Lymph # (Auto) Seg Neutrophils % D-Dimer Sodium Potassium BUN Creatinine POC Glucose 149 H 170 H Magnesium Albumin Urine Creatinine 23.3 H Ur Total Protein 24 Hr 845.00 H Urine Total Protein 13 H 04/07/20 04/07/20 04/07/20 02:35 06:27 11:12 RBC Hgb Hct MCHC Lymph # (Auto) Seg Neutrophils % D-Dimer Sodium Potassium BUN Creatinine POC Glucose 192 H 177 H 202 H Magnesium Albumin Urine Creatinine Ur Total Protein 24 Hr Urine Total Protein 11/18/20 11/18/20 11/19/20 15:03 19:19 06:35 RBC Hgb Hct MCHC Lymph # (Auto) Seg Neutrophils % D-Dimer Sodium Potassium BUN Creatinine POC Glucose 120 H 116 H 117 H Magnesium Albumin Urine Creatinine Ur Total Protein 24 Hr Urine Total Protein 04/08/20 04/08/20 04/09/20 10:24 18:13 05:37 RBC Hgb Hct MCHC Lymph # (Auto) Seg Neutrophils % D-Dimer Sodium Potassium BUN Creatinine POC Glucose 194 H 123 H 147 H Magnesium Albumin Urine Creatinine Ur Total Protein 24 Hr Urine Total Protein 04/09/20 10:04 RBC Hgb Hct MCHC Lymph # (Auto) Seg Neutrophils % D-Dimer Sodium Potassium BUN Creatinine POC Glucose 167 H Magnesium Albumin Urine Creatinine Ur Total Protein 24 Hr Urine Total Protein Laboratory Results - last 24 hr 04/05/20 04/05/20 04/08/20 Unknown Unknown 16:12 POC Glucose Coronavirus (PCR) Negative Herpes Simplex Culture see below Blood Type AB POSITIVE Antibody Screen Negative 04/08/20 04/09/20 04/09/20 18:13 05:37 10:04 POC Glucose 123 H 147 H 167 H Coronavirus (PCR) Herpes Simplex Culture Blood Type Antibody Screen
[2020-04-09] MEDS ORDERED: AMPICILLIN/NS 1 GM/50 ML 1 GM/50 ML BAG IV ONE (16:00)
[2020-04-09] MEDS: MAGNESIUM SULFATE 40GM/1000ML 40 GM/1,000 ML BAG IV SCH (19:57)
[2020-04-09] MEDS ORDERED: MAGNESIUM SULFATE 4 GM/100 ML BAG IV ONE (19:58)
[2020-04-09] MEDS ORDERED: NALOXONE 2 MG/2 ML INJ IV PRN ×2 (21:43→23:17)
[2020-04-09] MEDS ORDERED: ePHEDrine SULFATE 50 MG/1 ML INJ IV PRN ×2 (21:43→23:17)
[2020-04-09] MEDS ORDERED: fentaNYL-BUPIV 2 MCG/ML-0.125% 200 MCG/100 ML BAG EPIDURAL SCH (22:00)
--- NOTE | 2020-04-09 23:17 | Anesthesia Consultation ---
Anesthesia Consult and Med Hx Date of service: 04/09/20 - Airway ROM Head & Neck: Adequate Mental/Hyoid Distance: Adequate Mallampati Class: Class II Intubation Access Assessment: Probably Good - Pulmonary Exam CTA: Yes - Cardiac Exam Cardiac Exam: RRR - Pre-Operative Health Status ASA Pre-Surgery Classification: ASA3 Proposed Anesthetic Plan: Epidural - Pulmonary Hx Smoking: No Hx Asthma: No Hx Respiratory Symptoms: No SOB: No COPD: No Home Oxygen Therapy: No Hx Pneumonia: No Hx Sleep Apnea: No - Cardiovascular System Hx Hypertension: No - Central Nervous System Hx Seizures: No Hx Psychiatric Problems: No - Endocrine Hx Renal Disease: No Hx End Stage Renal Disease: No Hx Hypothyroidism: No Hx Hyperthyroidism: No - Hematic Hx Anemia: No Hx Sickle Cell Disease: No - Other Systems Hx Alcohol Use: No
--- NOTE | 2020-04-10 00:15 | Progress Note ---
Labor Epidural - Labor Epidural Start Time: 11:30 Stop Time: 11:50 Performed by:: FAWAD MARCUM Procedure: Patient is requesting a laboring epidural for laboring pain. Patient IDed, H&P reviewed, all questions and concerns were answered, and consent was signed. Timeout was performed at bedside. Patient in sitting position. Sterile prep and drape was performed. [5] ml of 1% lidocaine skin wheal at L[3]- L [4]. 18- gauge Tuohy epidural needle was advanced to loss of resistance with air technique two attempts by LY Saenz and 2 attempts by DARRELL. Fourth attempt JUNAID to 7cm. Negative CSF negative blood via Tuohy needle. #27g Spinal needle clear, free flowing CSF, Pecedex 10 mcg. Epidural catheter advanced to [10] centimeters. [negative] Aspiration [negative] test dose. Sterile dressing applied. Patient tolerated procedure.
[2020-04-10] MEDS: fentaNYL-BUPIV 2 MCG/ML-0.125% 200 MCG/100 ML BAG EPIDURAL SCH ×3 (00:20→16:53)
[2020-04-10] MEDS: OXYTOCIN DRIP 30 UNITS/500 ML BAG IV SCH ×6 (00:41→15:04)
[2020-04-10] MEDS ORDERED: ZOLPIDEM 5 MG TAB PO PRN (01:45)
[2020-04-10] MEDS: LACTATED RINGERS 1,000 ML IV SCH ×2 (03:51→13:08)
[2020-04-10] MEDS: metFORMIN 500 MG TAB PO SCH ×3 (08:29→16:58)
[2020-04-10] MEDS: valACYclovir 500 MG TAB PO SCH ×2 (10:06→21:33)
[2020-04-10] MEDS: INSULIN REGULAR, HUMAN 100 UNIT/ML 3ML VIAL SUB-Q SCH (12:36)
--- NOTE | 2020-04-10 14:55 | Progress Note ---
Assessment and Plan - Patient Problems (1) Elevated blood pressure affecting in third trimester, antepartum Current Visit: Yes Status: Acute Plan to address problem: --New with Preeclampsia with severe features given severe range BPs for IOL --Continue labetolol 300mg TID. S/p steriods x 2 doses. S/p magnesium for neuroprotection. --Amp for GBS ppx. --Pitocin per protocol for IOL --Epidural for pain management --Anticipate (2) Diabetes in Current Visit: Yes Status: Acute Plan to address problem: --CBGs per routine. Metformin 500mg TID. (3) Depression affecting Current Visit: Yes Status: Acute Plan to address problem: --Continue home Zoloft (4) Genital lesion, female Current Visit: Yes Status: Acute Plan to address problem: HSV neg in viral culture, proceed with vaginal delivery Subjective - Subjective Principal diagnosis: elevated blood pressures Interval history: Current undergoing IOL. s/p restart of Mag for severe range BPs. On pit per protocol. BPs mildly elevated intermittently. s/p steriods x 2. On labetolol 300mg TID for elevated BPs. Denies PIH symptoms. Patient reports: movement normal, no loss of fluid, no vaginal bleeding, no contractions (PT doing well. No preeclamptic sxs. She had a PEARL last night that resolved with Tylenol.) Objective - Vital Signs Vital Signs: Vital Signs - 12hr 04/10/20 04/10/20 04/10/20 02:52 02:57 02:59 Temperature Pulse Rate 88 79 83 Respiratory Rate Blood Pressure 168/80 Blood Pressure [Left] O2 Sat by Pulse 100 100 Oximetry 04/10/20 04/10/20 04/10/20 03:02 03:07 03:12 Temperature Pulse Rate 86 84 89 Respiratory Rate Blood Pressure Blood Pressure [Left] O2 Sat by Pulse 99 100 100 Oximetry 04/10/20 04/10/20 04/10/20 03:17 03:19 03:22 Temperature Pulse Rate 86 80 82 Respiratory Rate Blood Pressure 168/79 Blood Pressure [Left] O2 Sat by Pulse 99 99 Oximetry 04/10/20 04/10/20 04/10/20 03:27 03:32 03:37 Temperature Pulse Rate 81 87 80 Respiratory Rate Blood Pressure Blood Pressure [Left] O2 Sat by Pulse 99 99 100 Oximetry 04/10/20 04/10/20 04/10/20 03:42 03:47 03:49 Temperature Pulse Rate 80 86 82 Respiratory Rate Blood Pressure 169/83 Blood Pressure [Left] O2 Sat by Pulse 99 100 Oximetry 04/10/20 04/10/20 04/10/20 03:52 03:57 04:02 Temperature Pulse Rate 83 85 85 Respiratory Rate Blood Pressure Blood Pressure [Left] O2 Sat by Pulse 99 99 98 Oximetry 04/10/20 04/10/20 04/10/20 04:07 04:12 04:17 Temperature Pulse Rate 87 80 85 Respiratory Rate Blood Pressure Blood Pressure [Left] O2 Sat by Pulse 99 98 100 Oximetry 04/10/20 04/10/20 04/10/20 04:18 04:22 04:27 Temperature Pulse Rate 85 83 91 H Respiratory Rate Blood Pressure 161/80 Blood Pressure [Left] O2 Sat by Pulse 97 99 Oximetry 04/10/20 04/10/20 04/10/20 04:32 04:37 04:42 Temperature Pulse Rate 86 88 87 Respiratory Rate Blood Pressure Blood Pressure [Left] O2 Sat by Pulse 99 100 100 Oximetry 04/10/20 04/10/20 04/10/20 04:47 04:49 04:52 Temperature Pulse Rate 83 84 89 Respiratory Rate Blood Pressure 163/85 Blood Pressure [Left] O2 Sat by Pulse 100 98 Oximetry 04/10/20 04/10/20 04/10/20 04:57 05:02 05:07 Temperature Pulse Rate 90 93 H 89 Respiratory Rate Blood Pressure Blood Pressure [Left] O2 Sat by Pulse 99 99 98 Oximetry 04/10/20 04/10/20 04/10/20 05:12 05:17 05:19 Temperature Pulse Rate 85 94 H 88 Respiratory Rate Blood Pressure 172/88 Blood Pressure [Left] O2 Sat by Pulse 100 98 Oximetry 04/10/20 04/10/20 04/10/20 05:22 05:27 05:32 Temperature Pulse Rate 88 83 86 Respiratory Rate Blood Pressure Blood Pressure [Left] O2 Sat by Pulse 100 97 100 Oximetry 04/10/20 04/10/20 04/10/20 05:37 05:40 05:42 Temperature Pulse Rate 87 93 H Respiratory Rate Blood Pressure 172/88 Blood Pressure [Left] O2 Sat by Pulse 98 99 Oximetry 04/10/20 04/10/2004/10/20 05:47 05:49 05:52 Temperature Pulse Rate 93 H 86 82 Respiratory Rate Blood Pressure 202/91 Blood Pressure [Left] O2 Sat by Pulse 98 100 Oximetry 04/10/20 04/10/20 04/10/20 05:54 05:57 06:02 Temperature Pulse Rate 86 86 82 Respiratory Rate Blood Pressure 150/70 Blood Pressure [Left] O2 Sat by Pulse 99 98 Oximetry 04/10/20 04/10/20 04/10/20 06:07 06:12 06:17 Temperature Pulse Rate 90 84 91 H Respiratory Rate Blood Pressure Blood Pressure [Left] O2 Sat by Pulse 100 98 98 Oximetry 04/10/20 04/10/20 04/10/20 06:19 06:22 06:27 Temperature Pulse Rate 83 91 H 87 Respiratory Rate Blood Pressure 145/71 Blood Pressure [Left] O2 Sat by Pulse 97 97 Oximetry 04/10/20 04/10/20 04/10/20 06:32 06:37 06:42 Temperature Pulse Rate 90 84 84 Respiratory Rate Blood Pressure Blood Pressure [Left] O2 Sat by Pulse 99 96 99 Oximetry 04/10/20 04/10/20 04/10/20 06:47 06:49 06:52 Temperature Pulse Rate 82 85 85 Respiratory Rate Blood Pressure 141/67 Blood Pressure [Left] O2 Sat by Pulse 98 97 Oximetry 04/10/20 04/10/20 04/10/20 06:57 07:02 07:07 Temperature Pulse Rate 83 86 82 Respiratory Rate Blood Pressure Blood Pressure [Left] O2 Sat by Pulse 97 100 100 Oximetry 04/10/20 04/10/20 04/10/20 07:12 07:17 07:19 Temperature Pulse Rate 88 86 85 Respiratory Rate Blood Pressure 142/75 Blood Pressure [Left] O2 Sat by Pulse 100 99 Oximetry 04/10/20 04/10/20 04/10/20 07:22 07:27 07:32 Temperature Pulse Rate 84 83 84 Respiratory Rate Blood Pressure Blood Pressure [Left] O2 Sat by Pulse 98 98 98 Oximetry 04/10/20 04/10/20 04/10/20 07:37 07:42 07:47 Temperature Pulse Rate 86 83 86 Respiratory Rate Blood Pressure Blood Pressure [Left] O2 Sat by Pulse 100 96 98 Oximetry 04/10/20 04/10/20 04/10/20 07:48 07:52 07:57 Temperature Pulse Rate 80 82 83 Respiratory Rate Blood Pressure 148/78 Blood Pressure [Left] O2 Sat by Pulse 97 99 Oximetry 04/10/20 04/10/20 04/10/20 08:02 08:07 08:12 Temperature Pulse Rate 81 89 77 Respiratory Rate Blood Pressure Blood Pressure [Left] O2 Sat by Pulse 98 99 99 Oximetry 04/10/20 04/10/20 04/10/20 08:17 08:19 08:22 Temperature 98.2 F Pulse Rate 78 83 81 Respiratory 20 Rate Blood Pressure 159/79 Blood Pressure [Left] O2 Sat by Pulse 99 99 Oximetry 04/10/20 04/10/20 04/10/20 08:27 08:32 08:37 Temperature Pulse Rate 83 84 82 Respiratory Rate Blood Pressure Blood Pressure [Left] O2 Sat by Pulse 99 99 99 Oximetry 04/10/20 04/10/20 04/10/20 08:42 08:47 08:51 Temperature Pulse Rate 86 79 81 Respiratory Rate Blood Pressure 155/79 Blood Pressure [Left] O2 Sat by Pulse 100 99 Oximetry 04/10/20 04/10/20 04/10/20 08:52 08:57 09:02 Temperature Pulse Rate 84 85 81 Respiratory Rate Blood Pressure Blood Pressure [Left] O2 Sat by Pulse 99 100 99 Oximetry 04/10/20 04/10/20 04/10/20 09:07 09:12 09:17 Temperature Pulse Rate 83 86 87 Respiratory Rate Blood Pressure Blood Pressure [Left] O2 Sat by Pulse 99 99 99 Oximetry 04/10/20 04/10/20 04/10/20 09:20 09:22 09:27 Temperature Pulse Rate 85 84 88 Respiratory Rate Blood Pressure 162/79 Blood Pressure [Left] O2 Sat by Pulse 100 100 Oximetry 04/10/20 04/10/20 04/10/20 09:32 09:37 09:42 Temperature Pulse Rate 88 87 87 Respiratory Rate Blood Pressure Blood Pressure [Left] O2 Sat by Pulse 99 100 99 Oximetry 04/10/20 04/10/20 04/10/20 09:47 09:50 09:52 Temperature Pulse Rate 82 81 84 Respiratory Rate Blood Pressure 160/82 Blood Pressure [Left] O2 Sat by Pulse 100 99 Oximetry 04/10/20 04/10/20 04/10/20 09:57 10:02 10:07 Temperature Pulse Rate 86 92 H 86 Respiratory Rate Blood Pressure Blood Pressure [Left] O2 Sat by Pulse 99 99 98 Oximetry 04/10/20 04/10/20 04/10/20 10:12 10:17 10:18 Temperature Pulse Rate 88 84 80 Respiratory Rate Blood Pressure 153/70 Blood Pressure [Left] O2 Sat by Pulse 99 100 Oximetry 04/10/20 04/10/20 04/10/20 10:22 10:27 10:32 Temperature 98.1 F Pulse Rate 81 79 80 Respiratory Rate Blood Pressure Blood Pressure [Left] O2 Sat by Pulse 100 99 98 Oximetry 04/10/20 04/10/20 04/10/20 10:37 10:42 10:47 Temperature Pulse Rate 77 78 74 Respiratory Rate Blood Pressure Blood Pressure [Left] O2 Sat by Pulse 96 96 99 Oximetry 04/10/20 04/10/20 04/10/20 10:50 10:52 10:57 Temperature Pulse Rate 81 85 74 Respiratory Rate Blood Pressure 165/74 Blood Pressure [Left] O2 Sat by Pulse 100 98 Oximetry 04/10/20 04/10/20 04/10/20 11:02 11:07 11:11 Temperature Pulse Rate 81 78 79 Respiratory Rate Blood Pressure Blood Pressure [Left] O2 Sat by Pulse 97 100 93 Oximetry 04/10/20 04/10/20 04/10/20 11:12 11:17 11:18 Temperature Pulse Rate 88 84 92 H Respiratory Rate Blood Pressure 149/82 Blood Pressure [Left] O2 Sat by Pulse 95 97 92 Oximetry 04/10/20 04/10/20 04/10/20 11:22 11:27 11:32 Temperature Pulse Rate 95 H 82 86 Respiratory Rate Blood Pressure Blood Pressure [Left] O2 Sat by Pulse 98 99 98 Oximetry 04/10/20 04/10/20 04/10/20 11:37 11:42 11:47 Temperature Pulse Rate 77 82 83 Respiratory Rate Blood Pressure Blood Pressure [Left] O2 Sat by Pulse 100 100 99 Oximetry 04/10/20 04/10/20 04/10/20 11:49 11:52 11:57 Temperature Pulse Rate 79 80 79 Respiratory Rate Blood Pressure 146/69 Blood Pressure [Left] O2 Sat by Pulse 100 100 Oximetry 04/10/20 04/10/20 04/10/20 12:02 12:07 12:12 Temperature Pulse Rate 79 85 77 Respiratory Rate Blood Pressure Blood Pressure [Left] O2 Sat by Pulse 100 100 100 Oximetry 04/10/20 04/10/20 04/10/20 12:15 12:16 12:17 Temperature 98.1 F Pulse Rate 82 82 92 H Respiratory 18 Rate Blood Pressure 135/75 Blood Pressure 135/75 [Left] O2 Sat by Pulse 100 99 Oximetry 04/10/20 04/10/20 04/10/20 12:18 12:19 12:22 Temperature Pulse Rate 96 H 87 84 Respiratory Rate Blood Pressure 149/74 Blood Pressure [Left] O2 Sat by Pulse 92 100 Oximetry 04/10/20 04/10/20 04/10/20 12:27 12:32 12:37 Temperature Pulse Rate 77 76 77 Respiratory Rate Blood Pressure Blood Pressure [Left] O2 Sat by Pulse 100 100 100 Oximetry 04/10/20 04/10/20 04/10/20 12:42 12:47 12:49 Temperature Pulse Rate 84 74 76 Respiratory Rate Blood Pressure 175/81 Blood Pressure [Left] O2 Sat by Pulse 100 100 Oximetry 04/10/20 04/10/20 04/10/20 12:52 12:57 13:02 Temperature Pulse Rate 79 82 76 Respiratory Rate Blood Pressure Blood Pressure [Left] O2 Sat by Pulse 100 100 100 Oximetry 04/10/20 04/10/20 04/10/20 13:07 13:11 13:12 Temperature Pulse Rate 87 85 88 Respiratory Rate Blood Pressure 167/80 Blood Pressure [Left] O2 Sat by Pulse 100 94 100 Oximetry 04/10/20 04/10/20 04/10/20 13:17 13:20 13:22 Temperature Pulse Rate 79 81 78 Respiratory Rate Blood Pressure 162/77 Blood Pressure [Left] O2 Sat by Pulse 100 100 Oximetry 04/10/20 04/10/20 04/10/20 13:27 13:30 13:32 Temperature Pulse Rate 89 88 83 Respiratory Rate Blood Pressure 160/77 Blood Pressure [Left] O2 Sat by Pulse 97 99 Oximetry 04/10/20 04/10/20 04/10/20 13:37 13:42 13:47 Temperature Pulse Rate 83 84 87 Respiratory Rate Blood Pressure Blood Pressure [Left] O2 Sat by Pulse 100 100 99 Oximetry 04/10/20 04/10/20 04/10/20 13:50 13:52 13:57 Temperature Pulse Rate 81 77 91 H Respiratory Rate Blood Pressure 167/82 Blood Pressure [Left] O2 Sat by Pulse 100 100 Oximetry 04/10/20 04/10/20 04/10/20 14:02 14:07 14:12 Temperature Pulse Rate 78 81 81 Respiratory Rate Blood Pressure Blood Pressure [Left] O2 Sat by Pulse 100 100 100 Oximetry 04/10/20 04/10/20 04/10/20 14:17 14:19 14:22 Temperature Pulse Rate 82 83 86 Respiratory Rate Blood Pressure 166/81 Blood Pressure [Left] O2 Sat by Pulse 100 100 Oximetry 04/10/20 04/10/20 04/10/20 14:27 14:29 14:32 Temperature Pulse Rate 91 H 89 90 Respiratory Rate Blood Pressure 155/76 Blood Pressure [Left] O2 Sat by Pulse 99 98 Oximetry 04/10/20 04/10/20 04/10/20 14:37 14:42 14:47 Temperature Pulse Rate 89 86 89 Respiratory Rate Blood Pressure Blood Pressure [Left] O2 Sat by Pulse 99 100 100 Oximetry 04/10/20 14:50 Temperature Pulse Rate 85 Respiratory Rate Blood Pressure 192/89 Blood Pressure [Left] O2 Sat by Pulse Oximetry - Exam Abdomen: Present: normal appearance, normal bowel sounds FHR: category 1 Uterine Contraction Monitor Mode: External Cervical Dilatation: 2 Uterine Contraction Pattern: Regular Uterine Tone Measurement Phase: Resting Uterine Contraction Intensity: Strong/Firm - Labs Labs: Abnormal Labs 04/04/20 04/04/20 04/04/20 18:54 18:54 18:54 RBC Hgb Hct MCHC 35 H Lymph # (Auto) Seg Neutrophils % D-Dimer Sodium 135 L Potassium 3.5 L BUN 4 L Creatinine 0.5 L 0.5 L POC Glucose Magnesium Albumin 3.6 L Urine Creatinine Ur Total Protein 24 Hr Urine Total Protein 04/05/20 04/05/20 04/05/20 03:10 03:42 12:56 RBC Hgb Hct MCHC Lymph # (Auto) Seg Neutrophils % D-Dimer Sodium Potassium BUN Creatinine POC Glucose 178 H 170 H Magnesium 4.50 H Albumin Urine Creatinine Ur Total Protein 24 Hr Urine Total Protein 04/05/20 04/05/20 04/05/20 15:00 18:38 19:07 RBC Hgb Hct MCHC Lymph # (Auto) Seg Neutrophils % D-Dimer Sodium Potassium BUN Creatinine POC Glucose 253 H Magnesium 4.60 H 3.90 H Albumin Urine Creatinine Ur Total Protein 24 Hr Urine Total Protein 04/05/20 04/05/20 04/05/20 19:07 19:07 22:48 RBC 3.34 L Hgb 10.0 L Hct 29.2 L MCHC Lymph # (Auto) 1.1 L Seg Neutrophils % 80.1 H D-Dimer 1008.11 H Sodium Potassium BUN Creatinine POC Glucose 210 H Magnesium Albumin Urine Creatinine Ur Total Protein 24 Hr Urine Total Protein 04/06/20 04/06/20 04/06/20 02:27 06:16 10:44 RBC Hgb Hct MCHC Lymph # (Auto) Seg Neutrophils % D-Dimer Sodium Potassium BUN Creatinine POC Glucose 194 H 194 H 212 H Magnesium Albumin Urine Creatinine Ur Total Protein 24 Hr Urine Total Protein 04/06/20 04/06/20 04/06/20 15:23 22:29 Unknown RBC Hgb Hct MCHC Lymph # (Auto) Seg Neutrophils % D-Dimer Sodium Potassium BUN Creatinine POC Glucose 149 H 170 H Magnesium Albumin Urine Creatinine 23.3 H Ur Total Protein 24 Hr 845.00 H Urine Total Protein 13 H 04/07/20 04/07/20 04/07/20 02:35 06:27 11:12 RBC Hgb Hct MCHC Lymph # (Auto) Seg Neutrophils % D-Dimer Sodium Potassium BUN Creatinine POC Glucose 192 H 177 H 202 H Magnesium Albumin Urine Creatinine Ur Total Protein 24 Hr Urine Total Protein 04/07/20 04/07/20 04/08/20 15:03 19:19 06:35 RBC Hgb Hct MCHC Lymph # (Auto) Seg Neutrophils % D-Dimer Sodium Potassium BUN Creatinine POC Glucose 120 H 116 H 117 H Magnesium Albumin Urine Creatinine Ur Total Protein 24 Hr Urine Total Protein 04/08/20 04/08/20 04/09/20 10:24 18:13 05:37 RBC Hgb Hct MCHC Lymph # (Auto) Seg Neutrophils % D-Dimer Sodium Potassium BUN Creatinine POC Glucose 194 H 123 H 147 H Magnesium Albumin Urine Creatinine Ur Total Protein 24 Hr Urine Total Protein 04/09/20 04/09/20 04/09/20 10:04 15:01 19:38 RBC Hgb Hct MCHC Lymph # (Auto) Seg Neutrophils % D-Dimer Sodium Potassium BUN Creatinine POC Glucose 167 H 131 H 135 H Magnesium Albumin Urine Creatinine Ur Total Protein 24 Hr Urine Total Protein 04/10/20 04/10/20 04/10/20 00:59 05:00 05:39 RBC Hgb Hct MCHC Lymph # (Auto) Seg Neutrophils % D-Dimer Sodium Potassium BUN Creatinine POC Glucose 107 H Magnesium 4.10 H 4.70 H Albumin Urine Creatinine Ur Total Protein 24 Hr Urine Total Protein 04/10/20 12:09 RBC Hgb Hct MCHC Lymph # (Auto) Seg Neutrophils % D-Dimer Sodium Potassium BUN Creatinine POC Glucose Magnesium 5.40 H Albumin Urine Creatinine Ur Total Protein 24 Hr Urine Total Protein Laboratory Results - last 24 hr 04/09/20 04/09/20 04/10/20 15:01 19:38 00:16 POC Glucose 131 H 135 H 96 Magnesium Blood Type Antibody Screen 04/10/20 04/10/20 04/10/20 00:59 05:00 05:39 POC Glucose 107 H Magnesium 4.10 H 4.70 H Blood Type Antibody Screen 04/10/20 04/10/20 04/10/20 07:54 12:08 12:09 POC Glucose 93 88 Magnesium 5.40 H Blood Type Antibody Screen 04/10/20 12:09 POC Glucose Magnesium Blood Type AB POSITIVE Antibody Screen Negative
[2020-04-10] MEDS: MAGNESIUM SULFATE 40GM/1000ML 40 GM/1,000 ML BAG IV SCH (16:25)
[2020-04-10 18:22] LABS: Basophils % (Auto) 0.1 % (0.0-1.8); Eosinophils % (Auto) 0.2 % (0.0-4.3); Hematocrit 30.8 % (30.3-42.9); Hemoglobin 10.4 gm/dl (10.1-14.3); Lymphocytes # (Auto) 1.2 K/mm3 (1.2-5.4); Lymphocytes % (Auto) 15.3 % (13.4-35.0); Mean Corpuscular HGB Conc 34 % (30-34); Mean Corpuscular Volume 87 fl (79-97); Monocytes # (Auto) 0.5 K/mm3 (0.0-0.8); Monocytes % (Auto) 6.7 % (0.0-7.3); Platelet Count 170 K/mm3 (140-440); Red Blood Count 3.53 M/mm3 (3.65-5.03); Red Cell Distribution Width 14.3 % (13.2-15.2)
[2020-04-10 18:24] LABS: INR 1.01 (0.87-1.13)
[2020-04-10 18:25] LABS: Partial Thromboplastin Time 26.4 Sec. (24.2-36.6)
[2020-04-10 18:40] LABS: Alanine Aminotransferase 14 units/L (7-56); Albumin 3.2 g/dL (3.9-5); BUN/Creatinine Ratio 4; Blood Urea Nitrogen 2 mg/dL (7-17); Calcium 7.3 mg/dL (8.4-10.2); Hemolysis Index 0
[2020-04-10] MEDS ORDERED: miSOPROStol 200 MCG TAB ONE (19:19)
[2020-04-10] MEDS ORDERED: miSOPROStol 200 MCG TAB PR ONE (19:19)
[2020-04-10] MEDS ORDERED: WITCH HAZEL/ GLYCERIN PAD TP PRN (19:48)
[2020-04-10] MEDS ORDERED: LANOLIN/ZINC/DIMETHICONE (LANSINOH) 7 GM TP PRN (19:48)
--- NOTE | 2020-04-10 19:57 | Procedure Note ---
OB Delivery Note - Delivery Date of Delivery: 04/10/20 Surgeon: KERRY ZAVALA Estimated blood loss: 300cc - Vaginal Delivery presentation: vertex Delivery position: OA Delivery induction: oxytocin Delivery monitor: external FHT, external uterine Route of delivery: Delivery placenta: spontaneous Delivery cord: 3 umbilical vessels Episiotomy: none Delivery laceration: 1st degree Delivery repair: vicryl Anesthesia: epidural Delivery comments: Called to apartment maintenance worker for delivery as provider was enroute to hospital. Spontaneous vaginal delivery at 19:14 of liveborn male infant over first degree perineal laceration with apgars of 8/9. NICU called to attend delivery. Delivery was atraumatic; no nuchal cord. Baby dried with warm towels and bulb suctioned right after delivery. Spontaneous cry and respirations. 3 vessel cord double clamped and cut and baby taken to radiant warmer for evaluation by NICU team. Spontaneous delivery of intact placenta and membranes by marie mechanism. EBL 300 cc. Pitocin to IV fluids after delivery of placenta. Cytotec 800 micrograms given for uterine atony. Fundus firm and midline. Small first degree perineal laceration repaired with 3-0 vicryl. No other lacerations. Vaginal sweep negative. Sponge count correct. Baby's weight unknown at this time.
--- NOTE | 2020-04-10 20:11 | Post Anesthesia Evaluation ---
- Post Anesthesia Evaluation Patient Participated: Yes Airway Patent: Yes Stable Respiratory Function: Yes Nausea/Vomiting: No Temp > 96.8F: Yes Pain Manageable: Yes Adequeate Hydration: Yes Anesthesia Complications: No Block Receding Appropriately: Yes Patient on Ventilator: No
--- NOTE | 2020-04-10 20:18 | Event Note ---
Date: 04/10/20 Given very elevated d-dimer will obtain b/l dopplers to r/o DVT. Recent labs and today's exam benign. Only pos for bilateral edema. Likely 2/2 to preE. -Continue to monitor
[2020-04-10] MEDS: DOCUSATE SODIUM 100 MG CAP PO SCH (21:31)
[2020-04-10] MEDS: HYDROcodone/ACETAMINOPHEN 5-325 MG TAB PO PRN ×2 (21:31→23:55)
--- NOTE | 2020-04-10 21:37 | Vascular Lab Report ---
DUPLEX DOPPLER LOWER EXTREMITY VEINS, BILATERAL INDICATION / CLINICAL INFORMATION: , elevated d-dimer, b/l edema. TECHNIQUE: Duplex doppler imaging was performed through the veins of both lower extremities using venous leo caren and other maneuvers. COMPARISON: None available. FINDINGS: RIGHT COMMON FEMORAL VEIN: Negative. RIGHT FEMORAL VEIN: Negative. RIGHT POPLITEAL VEIN: Negative. RIGHT CALF VEINS: Negative. LEFT COMMON FEMORAL VEIN: Negative. LEFT FEMORAL VEIN: Negative. LEFT POPLITEAL VEIN: Negative. LEFT CALF VEINS: Negative. ADDITIONAL FINDINGS: None. IMPRESSION: 1. No sonographic evidence for DVT in either lower extremity. Signer Name: Clarence Hilario MD Signed: 04/10/2020 9:33 PM Workstation Name: [id number]
[2020-04-11] MEDS: SERTRALINE 25 MG TAB PO SCH ×2 (01:41→22:46)
[2020-04-11] MEDS: LACTATED RINGERS 1,000 ML IV SCH ×2 (02:47→14:42)
[2020-04-11] MEDS ORDERED: OXYTOCIN 10 UNIT/1 ML INJ ONE (05:41)
[2020-04-11 07:17] LABS: Hematocrit 31.7 % (30.3-42.9); Hemoglobin 10.6 gm/dl (10.1-14.3)
[2020-04-11] MEDS: HYDROcodone/ACETAMINOPHEN 10-325MG TAB PO PRN ×3 (08:44→22:46)
[2020-04-11] MEDS: metFORMIN 500 MG TAB PO SCH ×3 (10:38→18:29)
[2020-04-11] MEDS: DOCUSATE SODIUM 100 MG CAP PO SCH ×2 (10:40→22:46)
[2020-04-11] MEDS: valACYclovir 500 MG TAB PO SCH (10:41)
[2020-04-11] MEDS: MAGNESIUM SULFATE 40GM/1000ML 40 GM/1,000 ML BAG IV SCH (12:06)
--- NOTE | 2020-04-11 13:15 | Progress Note ---
Assessment and Plan A: day 1 S/P . Preeclampsia with severe features. Type 2 diabetes, on Metformin. Depression: receiving Zoloft. P: Continue magnesium sulfate until 24 hours post delivery. Increased Labetalol to 400 mg po every 8 hours as ordered by Dr. Blancas; informed nurse of this change. Monitor BPs. Subjective - Subjective Date of service: 04/11/20 Principal diagnosis: day 1 S/P Interval history: Preeclampsia with severe features, now delivered, receiving magnesium sulfate until this evening. BPs have been high. Labetalol increased to 400 mg po every 8 hours after consultation with Dr. Blancas. Patient denies headache, visual disturbance, swelling, epigastric pain, or N/V. Patient reports: appetite normal, pain well controlled, flatus, no nauseated [place]: doing well Objective - Vital Signs Latest vital signs: Vital Signs Temp Pulse Resp BP Pulse Ox 04/11/20 13:07 75 100 04/11/20 13:02 74 98 04/11/20 13:00 70 165/83 04/11/20 12:57 71 167/81 96 04/11/20 12:52 72 98 04/11/20 12:47 76 98 04/11/20 12:42 80 97 04/11/20 12:37 73 98 04/11/20 12:32 75 98 04/11/20 12:30 73 197/88 04/11/20 12:27 85 98 04/11/20 12:26 75 94 04/11/20 12:22 74 97 04/11/20 12:17 71 97 04/11/20 12:12 74 97 04/11/20 12:11 75 93 04/11/20 12:07 77 99 04/11/20 12:02 71 99 04/11/20 12:00 73 166/77 04/11/20 11:57 73 100 04/11/20 11:52 80 97 04/11/20 11:47 70 99 04/11/20 11:42 70 96 04/11/20 11:37 73 98 04/11/20 11:32 69 96 04/11/20 11:30 74 159/88 04/11/20 11:27 69 97 04/11/20 11:22 71 97 04/11/20 11:17 75 97 04/11/20 11:12 71 97 11/22/20 11:07 69 97 22/20 11:02 71 96 22/20 10:59 66 165/83 11/22/20 10:57 86 99 22/20 10:56 84 93 22/20 10:52 78 100 22/20 10:47 75 98 22/20 10:45 71 167/85 22/20 10:42 80 97 22/20 10:39 74 167/92 22/20 10:37 76 98 22/20 10:32 74 98 /22/20 10:27 77 98 22/20 10:22 73 96 22/20 10:17 74 97 22/20 10:12 82 98 22/20 10:07 76 97 22/20 10:02 78 97 22/20 09:57 70 95 22/20 09:52 71 97 22/20 09:47 79 97 22/20 09:42 78 97 22/20 09:39 77 139/74 22/20 09:37 84 96 22/20 09:32 76 95 22/20 09:30 72 94 22/20 09:27 79 96 22/20 09:22 83 96 22/20 09:17 77 98 22/20 09:12 77 97 22/20 09:07 78 98 22/20 09:02 76 99 22/20 08:57 86 99 22/20 08:55 98.1 F 04/11/20 08:52 81 98 22/20 08:47 82 99 22/20 08:42 71 98 22/20 08:39 71 154/76 22/20 08:37 72 98 22/20 08:32 74 98 22/20 08:27 78 99 22/20 08:22 80 98 22/20 08:17 72 97 22/20 08:12 73 100 22/20 08:07 79 100 22/20 08:03 68 156/76 22/20 08:02 74 156/76 100 22/20 07:57 69 100 11/22/20 07:52 72 96 11/22/20 07:47 71 96 04/11/20 07:42 73 98 04/11/20 07:39 71 179/84 04/11/20 07:37 71 99 04/11/20 07:32 73 98 04/11/20 07:27 74 98 04/11/20 07:22 70 100 04/11/20 07:17 69 100 04/11/20 07:14 69 162/82 04/11/20 07:12 73 100 04/11/20 07:07 76 100 04/11/20 07:02 71 100 04/11/20 06:57 81 98 04/11/20 06:52 71 100 04/11/20 06:47 78 97 04/11/20 06:42 70 98 04/11/20 06:39 71 180/88 04/11/20 06:37 71 98 04/11/20 06:32 69 18 100 04/11/20 06:27 69 98 04/11/20 06:24 98.9 F 04/11/20 06:22 70 99 04/11/20 06:17 78 97 04/11/20 06:12 87 100 04/11/20 06:07 65 100 04/11/20 06:02 67 100 04/11/20 05:57 67 100 04/11/20 05:52 69 100 04/11/20 05:47 68 100 04/11/20 05:42 69 100 04/11/20 05:40 74 0 L 04/11/20 05:39 65 164/77 04/11/20 05:37 72 98 04/11/20 05:32 68 100 04/11/20 05:27 67 100 04/11/20 05:22 68 97 04/11/20 05:19 75 91 04/11/20 05:17 73 95 04/11/20 05:12 72 98 04/11/20 05:07 82 96 04/11/20 05:03 83 91 04/11/20 05:02 75 96 04/11/20 04:57 74 97 04/11/20 04:55 77 93 04/11/20 04:52 74 92 04/11/20 04:50 76 94 04/11/20 04:47 96 H 95 04/11/20 04:44 78 94 04/11/20 04:42 72 96 20 04:39 67 153/70 92 04/11/20 04:37 71 95 04/11/20 04:32 70 94 04/11/20 04:29 71 94 04/11/20 04:27 69 95 04/11/20 04:23 70 94 04/11/20 04:22 69 95 04/11/20 04:17 70 96 04/11/20 04:13 69 94 04/11/20 04:12 68 95 04/11/20 04:07 68 94 04/11/20 04:02 69 94 04/11/20 04:00 99.0 F 18 100 04/11/20 03:57 67 95 04/11/20 03:52 68 95 04/11/20 03:47 67 97 04/11/20 03:42 64 98 04/11/20 03:39 74 156/86 04/11/20 03:37 71 100 04/11/20 03:32 85 100 04/11/20 03:27 86 99 04/11/20 03:22 79 96 04/11/20 03:17 81 94 04/11/20 03:15 76 94 04/11/20 03:12 87 96 04/11/20 03:07 86 93 04/11/20 03:06 79 94 04/11/20 03:02 71 97 04/11/20 02:57 77 97 04/11/20 02:52 74 98 04/11/20 02:47 74 100 04/11/20 02:42 82 99 04/11/20 02:39 69 163/82 04/11/20 02:37 72 97 04/11/20 02:32 72 97 04/11/20 02:27 71 98 04/11/20 02:22 74 98 04/11/20 02:17 75 99 04/11/20 02:12 81 99 04/11/20 02:07 81 98 04/11/20 02:02 71 98 04/11/20 02:00 98.9 F 04/11/20 01:57 71 97 04/11/20 01:52 71 16 96 04/11/20 01:47 74 100 04/11/20 01:42 83 98 04/11/20 01:39 73 161/86 04/11/20 01:37 76 98 20 01:32 75 99 20 01:27 77 99 04/11/20 01:22 77 99 04/11/20 01:17 76 98 04/11/20 01:12 76 98 04/11/20 01:07 80 99 04/11/20 01:02 83 99 20 00:57 81 99 20 00:52 78 99 20 00:47 77 99 20 00:42 76 100 20 00:39 72 166/80 20 00:37 77 99 20 00:32 73 99 20 00:27 77 100 04/11/20 00:22 75 100 04/11/20 00:17 79 100 04/11/20 00:12 77 100 04/11/20 00:07 80 100 20 00:02 84 100 20 23:57 82 99 20 23:52 78 99 20 23:47 77 98 20 23:42 74 99 20 23:37 82 98 20 23:35 71 149/72 20 23:32 72 98 20 23:30 74 132/70 20 23:27 80 98 20 23:25 72 142/71 20 23:22 77 98 20 23:20 74 139/73 20 23:17 74 98 20 23:15 77 137/73 20 23:12 76 98 20 23:10 77 139/69 20 23:07 80 100 04/10/20 23:05 73 139/65 20 23:02 81 100 20 23:00 88 128/59 20 22:57 74 98 04/10/20 22:55 73 145/70 20 22:52 75 98 20 22:50 75 145/70 04/10/20 22:47 80 99 20 22:45 74 144/63 20 22:42 77 99 20 22:40 75 153/72 2120 22:37 77 99 2120 22:35 80 163/77 2120 22:32 85 99 2120 22:30 75 151/71 2120 22:27 80 100 20 22:25 74 137/65 20 22:22 79 100 20 22:20 78 140/64 20 22:17 78 100 20 22:15 84 150/69 20 22:12 83 100 20 22:11 85 131/92 20 22:07 83 100 04/10/20 22:05 80 141/64 04/10/20 22:02 83 100 04/10/20 22:00 98.9 F 77 143/64 04/10/20 21:57 76 100 20 21:55 78 139/64 20 21:52 79 99 20 21:50 74 145/55 20 21:47 82 100 20 21:45 77 135/64 20 21:42 78 100 2120 21:41 79 180/70 20 21:37 85 100 20 21:35 86 150/67 20 21:32 84 100 20 21:31 16 20 21:30 88 164/72 20 21:27 75 100 2120 21:26 81 146/64 20 21:24 76 164/66 21/20 21:22 71 100 2120 21:20 41 L 92 2120 21:17 72 100 21/20 21:15 75 164/66 21/20 21:12 70 100 2120 21:10 78 149/75 20 21:07 75 100 21/20 21:05 67 153/72 20 21:02 72 100 2120 21:01 70 168/73 2120 20:57 74 100 2120 20:55 80 152/72 11/21/20 20:52 81 99 20 20:47 78 99 2120 20:45 73 164/74 20 20:42 78 98 20 20:37 83 100 20 20:35 80 165/96 20 20:32 73 100 20 20:30 75 158/75 20 20:27 82 99 20 20:25 134 H 177/82 20 20:22 81 98 2120 20:20 77 169/79 20 20:17 77 100 20 20:15 20 100 20 20:12 77 100 20 20:10 70 152/67 04/10/20 20:07 72 100 20 20:05 79 155/66 20 20:02 76 100 20 20:00 72 158/69 20 19:57 81 100 20 19:55 85 177/93 20 19:52 78 100 20 19:50 75 152/76 20 19:47 78 100 20 19:42 78 100 20 19:40 72 91 04/10/20 19:37 87 100 20 19:32 81 100 20 19:30 77 18 157/79 100 20 19:27 79 100 20 19:22 74 100 20 19:20 82 183/94 04/10/20 19:17 86 100 20 19:15 89 180/84 20 19:12 83 100 20 19:10 78 166/80 20 19:07 83 100 20 19:06 81 176/83 04/10/20 19:02 85 100 20 19:00 83 171/83 20 18:59 85 180/83 20 18:57 92 H 100 20 18:56 90 193/111 04/10/20 18:52 94 H 100 20 18:51 96 H 160/101 04/10/20 18:47 88 100 04/10/20 18:46 84 159/86 04/10/20 18:42 68 100 04/10/20 18:40 71 142/69 04/10/20 18:37 72 100 04/10/20 18:35 69 138/69 04/10/20 18:32 72 100 04/10/20 18:30 70 138/66 04/10/20 18:27 70 100 04/10/20 18:26 71 149/72 04/10/20 18:22 72 100 04/10/20 18:21 70 147/70 04/10/20 18:17 71 100 04/10/20 18:15 70 148/70 04/10/20 18:12 85 100 04/10/20 18:07 73 98 04/10/20 18:02 75 98 04/10/20 17:57 82 100 04/10/20 17:56 77 0 L 04/10/20 17:52 74 97 04/10/20 17:51 71 138/67 04/10/20 17:47 71 97 04/10/20 17:46 74 143/76 04/10/20 17:42 72 98 04/10/20 17:41 76 138/69 04/10/20 17:37 73 97 04/10/20 17:35 74 141/77 94 04/10/20 17:32 74 97 04/10/20 17:30 73 142/77 04/10/20 17:27 79 97 04/10/20 17:26 75 142/77 04/10/20 17:22 73 96 04/10/20 17:20 71 146/77 04/10/20 17:17 74 98 04/10/20 17:16 76 149/75 04/10/20 17:12 81 99 04/10/20 17:11 75 147/94 04/10/20 17:07 87 100 04/10/20 17:05 86 134/65 04/10/20 17:02 82 97 04/10/20 17:01 80 154/83 04/10/20 16:57 77 99 04/10/20 16:56 82 172/81 04/10/20 16:52 83 100 04/10/20 16:50 83 153/81 11/21/20 16:47 84 100 11/21/20 16:42 82 99 04/10/20 16:37 86 99 20 16:33 86 166/83 20 16:32 86 100 04/10/20 16:27 80 100 04/10/20 16:22 89 99 04/10/20 16:17 86 100 20 16:12 82 98 20 16:07 78 98 20 16:02 78 141/72 99 20 15:57 86 99 04/10/20 15:52 79 99 04/10/20 15:47 78 98 04/10/20 15:42 78 99 20 15:37 82 99 20 15:33 77 165/80 20 15:32 81 99 20 15:27 78 100 20 15:22 79 100 20 15:17 78 100 20 15:12 79 99 20 15:07 80 100 20 15:02 82 176/83 100 20 14:57 85 100 04/10/20 14:52 86 100 04/10/20 14:50 85 192/89 20 14:47 89 100 20 14:42 86 100 20 14:37 89 99 20 14:32 90 98 20 14:29 89 155/76 20 14:27 91 H 99 20 14:22 86 100 20 14:19 83 166/81 20 14:17 82 100 04/10/20 14:12 81 100 04/10/20 14:07 81 100 04/10/20 14:02 78 100 20 13:57 91 H 100 20 13:52 77 100 20 13:50 81 167/82 04/10/20 13:47 87 99 21/20 13:42 84 100 04/10/20 13:37 83 100 21/20 13:32 83 99 20 13:30 88 160/77 2120 13:27 89 97 11/21/20 13:22 78 100 04/10/20 13:20 81 162/77 04/10/20 13:17 79 100 04/10/20 13:12 88 100 Intake and Output 04/10/20 04/11/20 04/11/20 23:59 07:59 15:59 Intake Total 1073.5 1029.167 Output Total 1300 3200 1450 Balance -226.5 -3200 -420.833 Intake: IV 1073.5 1029.167 Lactated Ringers 1,000 ml 1000 @ 125 mls/hr IV DIRECT ESAU Rx#:[id number] Left Wrist 45 MAGNESIUM SULFATE 40GM/ 984.167 1000ML 40 gm In 1,000 ml @ 2 GM/HR 50 mls/hr IV DIRECT ESAU Rx#:[id number] PITOCin/NS 30 UNIT/500ML 73.5 30 units In 500 ml @ 1 MILLIUNITS/MIN 1 mls/hr IV TITR ESAU Rx#:[id number] Output: Urine 1300 3200 1450 Indwelling Catheter 1300 3200 1450 Other: Total, Output Amount 500 500 700 Estimated Blood Loss 300 - Exam Cardiovascular: Present: Regular rate Lungs: Present: Clear to auscultation Abdomen: Present: normal appearance, soft. Absent: distention, tenderness, guarding, rigidity Uterus: Present: normal, firm, fundal height below umbilicus. Absent: bogginess, tenderness Extremities: Present: normal. Absent: tenderness - Labs Labs: Abnormal lab results 04/10/20 04/10/20 04/10/20 Range/Units 15:20 17:55 17:55 RBC 3.53 L (3.65-5.03) M/mm3 Seg Neutrophils % 77.7 H (40.0-70.0) % D-Dimer (0-234) ng/mlDDU Sodium (137-145) mmol/L Potassium (3.6-5.0) mmol/L BUN (7-17) mg/dL Creatinine (0.6-1.2) mg/dL Glucose (65-100) mg/dL POC Glucose 118 H (70-105) mg/dL Calcium (8.4-10.2) mg/dL Magnesium 5.50 H (1.7-2.3) mg/dL Total Protein (6.3-8.2) g/dL Albumin (3.9-5) g/dL 04/10/20 04/10/20 04/11/20 Range/Units 17:55 17:55 01:05 RBC (3.65-5.03) M/mm3 Seg Neutrophils % (40.0-70.0) % D-Dimer 2311.17 H (0-234) ng/mlDDU Sodium 136 L (137-145) mmol/L Potassium 3.3 L (3.6-5.0) mmol/L BUN 2 L (7-17) mg/dL Creatinine 0.5 L (0.6-1.2) mg/dL Glucose 135 H (65-100) mg/dL POC Glucose (70-105) mg/dL Calcium 7.3 L (8.4-10.2) mg/dL Magnesium 5.10 H (1.7-2.3) mg/dL Total Protein 5.8 L (6.3-8.2) g/dL Albumin 3.2 L (3.9-5) g/dL 04/11/20 04/11/20 Range/Units 06:56 11:55 RBC (3.65-5.03) M/mm3 Seg Neutrophils % (40.0-70.0) % D-Dimer (0-234) ng/mlDDU Sodium (137-145) mmol/L Potassium (3.6-5.0) mmol/L BUN (7-17) mg/dL Creatinine (0.6-1.2) mg/dL Glucose (65-100) mg/dL POC Glucose (70-105) mg/dL Calcium (8.4-10.2) mg/dL Magnesium 5.40 H 5.70 H (1.7-2.3) mg/dL Total Protein (6.3-8.2) g/dL Albumin (3.9-5) g/dL
[2020-04-11] MEDS: FERROUS SULFATE 325 MG TAB PO SCH ×2 (16:42→22:47)
[2020-04-11] MEDS ORDERED: hydrALAZINE 20 MG/1 ML INJ ONE (21:21)
[2020-04-11] MEDS: hydrALAZINE 20 MG/1 ML INJ IV PRN (21:34)
[2020-04-12] MEDS: metFORMIN 500 MG TAB PO SCH ×3 (08:59→20:03)
[2020-04-12] MEDS: FERROUS SULFATE 325 MG TAB PO SCH ×2 (08:59→22:56)
[2020-04-12] MEDS: DOCUSATE SODIUM 100 MG CAP PO SCH ×2 (08:59→22:56)
[2020-04-12] MEDS: ACETAMINOPHEN 325 MG TAB PO PRN (08:59)
[2020-04-12] MEDS: hydrALAZINE 20 MG/1 ML INJ IV PRN (12:41)
[2020-04-12] MEDS: HYDROcodone/ACETAMINOPHEN 10-325MG TAB PO PRN ×2 (12:45→20:01)
--- NOTE | 2020-04-12 13:03 | Progress Note ---
Assessment and Plan PPD # 2 A: s/p with preeclampsia Anemia, Type 2 DM and Depression Elevated b/p P: Continue monitoring Continue Labetalol and Hydrazline prn for elevated b/p Ferrous Sulfate Will d/c home when b/p is stable POC agrees with plan of care Subjective - Subjective Date of service: 04/12/20 Principal diagnosis: day 1 S/P Patient reports: appetite normal, voiding normally, pain well controlled, ambulating normally : doing well, bottle feeding Objective - Vital Signs Latest vital signs: Vital Signs Temp Pulse Resp BP BP Pulse Ox 04/12/20 12:45 18 04/12/20 12:41 60 179/73 04/12/20 12:13 99.4 F 65 18 173/68 98 04/12/20 09:29 98.4 F 78 18 161/75 98 04/12/20 08:59 18 04/12/20 06:03 82 166/77 04/12/20 04:00 98.8 F 74 18 101/63 04/12/20 00:29 98.0 F 85 18 137/71 99 04/11/20 22:47 80 159/79 04/11/20 22:46 16 04/11/20 21:34 68 200/88 04/11/20 21:30 58 L 83 L 04/11/20 21:17 70 84 04/11/20 21:12 66 100 04/11/20 21:07 68 100 04/11/20 21:02 63 100 04/11/20 21:00 63 184/91 04/11/20 20:57 68 99 04/11/20 20:52 73 98 04/11/20 20:47 74 99 04/11/20 20:42 68 100 04/11/20 20:37 76 98 04/11/20 20:32 69 98 04/11/20 20:30 67 189/95 04/11/20 20:27 78 97 04/11/20 20:22 64 97 04/11/20 20:17 71 96 04/11/20 20:12 67 96 04/11/20 20:07 78 96 04/11/20 20:02 71 96 04/11/20 20:00 65 183/87 04/11/20 19:57 72 97 04/11/20 19:52 70 96 11/22/20 19:47 72 96 20 19:42 70 97 20 19:37 70 98 20 19:32 79 96 20 19:30 71 190/87 20 19:27 71 98 20 19:22 74 99 20 19:17 74 99 20 19:12 79 98 04/11/20 19:07 80 98 04/11/20 19:02 73 98 20 19:00 73 164/84 20 18:57 78 99 20 18:52 81 98 20 18:47 78 99 04/11/20 18:42 76 98 04/11/20 18:37 75 99 04/11/20 18:32 82 99 20 18:27 81 99 04/11/20 18:22 86 99 04/11/20 18:17 77 99 04/11/20 18:12 74 98 04/11/20 18:07 74 98 04/11/20 18:02 75 98 04/11/20 18:00 77 158/95 04/11/20 17:57 81 98 04/11/20 17:52 71 99 04/11/20 17:47 73 99 04/11/20 17:42 74 98 04/11/20 17:37 75 99 04/11/20 17:32 80 98 04/11/20 17:30 67 184/82 20 17:27 68 99 04/11/20 17:22 78 98 04/11/20 17:17 79 99 04/11/20 17:12 81 98 20 17:07 70 99 04/11/20 17:02 73 98 20 17:00 75 161/83 20 16:57 69 100 20 16:52 69 100 20 16:47 68 99 20 16:42 72 97 20 16:37 65 96 20 16:32 64 96 04/11/20 16:30 64 155/73 94 20 16:27 63 95 20 16:22 64 97 20 16:20 66 93 04/11/20 16:17 64 94 04/11/20 16:14 66 94 04/11/20 16:12 66 94 04/11/20 16:09 67 94 04/11/20 16:07 67 95 04/11/20 16:02 68 94 04/11/20 16:00 67 114/57 93 04/11/20 15:57 68 94 04/11/20 15:55 66 94 04/11/20 15:52 68 93 04/11/20 15:49 71 92 04/11/20 15:47 68 94 04/11/20 15:42 67 93 04/11/20 15:38 68 94 04/11/20 15:37 66 95 04/11/20 15:33 66 93 04/11/20 15:32 66 95 04/11/20 15:30 69 119/59 04/11/20 15:27 71 94 04/11/20 15:22 70 96 04/11/20 15:17 69 100 04/11/20 15:12 67 99 04/11/20 15:08 65 94 04/11/20 15:07 73 96 04/11/20 15:02 71 97 04/11/20 15:00 71 156/75 04/11/20 14:59 67 94 04/11/20 14:57 79 96 04/11/20 14:52 66 96 04/11/20 14:49 74 94 04/11/20 14:47 67 96 04/11/20 14:43 98.4 F 04/11/20 14:42 64 97 04/11/20 14:37 72 97 04/11/20 14:36 73 146/75 04/11/20 14:32 62 95 04/11/20 14:30 61 146/65 94 04/11/20 14:27 61 96 04/11/20 14:22 63 95 04/11/20 14:17 65 95 04/11/20 14:12 61 100 04/11/20 14:07 76 100 04/11/20 14:02 67 92 04/11/20 14:00 67 171/77 04/11/20 13:57 72 93 04/11/20 13:55 74 91 04/11/20 13:52 69 98 04/11/20 13:47 65 96 04/11/20 13:42 77 92 04/11/20 13:40 68 93 04/11/20 13:37 74 94 04/11/20 13:35 71 93 04/11/20 13:32 62 96 04/11/20 13:30 64 156/69 94 04/11/20 13:27 69 94 04/11/20 13:24 66 94 04/11/20 13:22 69 96 04/11/20 13:17 72 98 04/11/20 13:12 71 98 04/11/20 13:07 75 100 04/11/20 13:02 74 98 Intake and Output 04/11/20 04/12/20 04/12/20 22:59 06:59 14:59 Intake Total 370 300 120 Output Total 725 Balance -355 300 120 Intake: IV 370 MAGNESIUM SULFATE 40GM/ 370 1000ML 40 gm In 1,000 ml @ 2 GM/HR 50 mls/hr IV DIRECT ESAU Rx#:[id number] Oral 300 120 Output: Urine 725 Indwelling Catheter 725 Other: Total, Intake Amount 300 120 Total, Output Amount 300 # Voids Void 1 1 - Exam Breasts: Present: normal Abdomen: Present: normal appearance, soft, normal bowel sounds Vulva: both: normal Uterus: Present: normal, firm, fundal height below umbilicus Extremities: Present: normal - Labs Labs: Abnormal lab results 04/11/20 04/11/20 Range/Units 17:25 18:18 POC Glucose 163 H (70-105) mg/dL Magnesium 5.80 H (1.7-2.3) mg/dL
[2020-04-12] MEDS ORDERED: FERROUS SULFATE 325 MG TAB PO SCH (14:00)
[2020-04-12] MEDS: SERTRALINE 25 MG TAB PO SCH (22:56)
[2020-04-13] MEDS: metFORMIN 500 MG TAB PO SCH ×3 (08:44→17:15)
[2020-04-13] MEDS: HYDROcodone/ACETAMINOPHEN 10-325MG TAB PO PRN ×2 (08:44→18:41)
[2020-04-13] MEDS: FERROUS SULFATE 325 MG TAB PO SCH ×2 (08:45→22:40)
[2020-04-13] MEDS: DOCUSATE SODIUM 100 MG CAP PO SCH ×2 (08:45→22:40)
[2020-04-13] MEDS ORDERED: MAGNESIUM HYDROXIDE (MOM) ORAL LIQD UDC PO PRN (10:00)
--- NOTE | 2020-04-13 12:06 | Progress Note ---
Assessment and Plan - Patient Problems (1) Preeclampsia Current Visit: Yes Status: Acute Plan to address problem: B/P remain elevated Consulted with physician Procardia XL 30mg 1 po QD Continue Labetalol as ordered Anticipate d/c when B/P's stable (2) Type 2 diabetes mellitus Current Visit: Yes Status: Acute Qualifiers: Diabetes mellitus complication status: without complication Plan to address problem: Continue to monitor glucose levels Continue glucophage as ordered (3) Anemia Current Visit: Yes Status: Acute Qualifiers: Anemia type: iron deficiency Plan to address problem: Asymptomatic Increase iron rich foods into diet Subjective - Subjective Date of service: 04/13/20 Principal diagnosis: S/P delivery; PPD#3; Pre-eclamsia Interval history: See admission H & P; OB delivery summary and PP progress notes Patient reports: appetite normal, voiding normally, pain well controlled, flatus, bowel movement, ambulating normally : in NICU Objective - Vital Signs Latest vital signs: Vital Signs Temp Pulse Resp BP BP Pulse Ox 04/13/20 08:00 98.1 F 64 20 175/71 04/13/20 07:01 56 L 170/65 04/13/20 04:25 98.5 F 62 18 160/63 98 04/13/20 00:30 98.2 F 80 18 162/71 98 04/12/20 22:57 56 L 171/72 04/12/20 20:42 98.2 F 84 18 154/59 99 04/12/20 17:04 98.4 F 79 18 163/65 100 04/12/20 14:02 92 H 138/64 04/12/20 12:45 18 04/12/20 12:41 60 179/73 04/12/20 12:22 99.4 F 64 18 173/68 04/12/20 12:13 99.4 F 65 18 173/68 98 Intake and Output 04/12/20 04/13/20 04/13/20 23:59 07:59 15:59 Intake Total 735 240 120 Output Total 600 Balance 135 240 120 Intake: IV 15 Left Wrist 15 Oral 240 120 Intake, Free Water 480 240 Output: Urine 600 Void 600 Other: Total, Intake Amount 240 120 Total, Output Amount 600 # Voids Void 1 2 1 - Exam Breasts: Present: normal Cardiovascular: Present: Regular rate Lungs: Present: Normal air movement Abdomen: Present: soft, tenderness Uterus: Present: firm, fundal height below umbilicus (U-3) Extremities: Present: normal Deep Tendon Reflex Grade: Normal +2 Incision: Present: other (1st degree laceration, healing as expected)
[2020-04-13] MEDS: NIFEdipine XL 30 MG TAB PO SCH (12:39)
[2020-04-13] MEDS: SERTRALINE 25 MG TAB PO SCH (22:41)
[2020-04-14] MEDS: HYDROcodone/ACETAMINOPHEN 10-325MG TAB PO PRN ×2 (00:15→06:13)
[2020-04-14] MEDS: metFORMIN 500 MG TAB PO SCH ×2 (08:12→13:57)
[2020-04-14] MEDS: DOCUSATE SODIUM 100 MG CAP PO SCH ×2 (10:20→22:17)
[2020-04-14] MEDS: NIFEdipine XL 30 MG TAB PO SCH (10:20)
[2020-04-14] MEDS: FERROUS SULFATE 325 MG TAB PO SCH ×3 (10:20→22:17)
[2020-04-14] MEDS: ACETAMINOPHEN 325 MG TAB PO PRN (12:59)
--- NOTE | 2020-04-14 13:48 | Progress Note ---
Assessment and Plan - Patient Problems (1) Elevated blood pressure affecting in third trimester, antepartum Current Visit: Yes Status: Acute Plan to address problem: --Preeclampsia with severe features s/p Mag x 24H --Increased labetolol to 500mg q8hrs, Continue procardia 30mg XL. --Dispo pending improvement of BPs (2) Diabetes in Current Visit: Yes Status: Acute Qualifiers: Gestational diabetes mellitus control: oral hypoglycemic-controlled Plan to address problem: --CBGs per routine. Metformin 500mg TID. (3) Depression affecting Current Visit: Yes Status: Acute Plan to address problem: --Continue home Zoloft Subjective - Subjective Date of service: 04/14/20 Principal diagnosis: S/P delivery; PPD#4; Pre-eclamsia Interval history: Patient doing well in period. Meeting postoperative goals. Baby doing well in NICU. Breastpumping without issue. Wants to go home when able. Patient reports: appetite normal, voiding normally, pain well controlled, flatus : doing well, in NICU Objective - Vital Signs Latest vital signs: Vital Signs Temp Pulse Resp BP BP Pulse Ox 04/14/20 08:45 98.5 F 69 20 145/70 95 04/14/20 04:42 98.0 F 80 20 151/77 94 04/14/20 00:37 98.1 F 79 20 151/74 96 04/13/20 22:39 133/85 04/13/20 21:30 98.2 F 79 20 133/57 98 04/13/20 16:10 98.1 F 67 20 150/76 Intake and Output 04/13/20 04/14/20 04/14/20 23:59 07:59 15:59 Intake Total 320 240 120 Balance 320 240 120 Intake: Oral 320 240 120 Other: Total, Intake Amount 320 240 120 # Voids Void 1 1 1 - Exam Abdomen: Present: normal appearance, normal bowel sounds, other (fundus firm) Deep Tendon Reflex Grade: Normal +2
[2020-04-14] MEDS: IBUPROFEN 800 MG TAB PO PRN (17:22)
[2020-04-14] MEDS: SERTRALINE 25 MG TAB PO SCH (22:17)
[2020-04-15] MEDS: DOCUSATE SODIUM 100 MG CAP PO SCH ×2 (00:45→09:32)
[2020-04-15] MEDS: HYDROcodone/ACETAMINOPHEN 10-325MG TAB PO PRN (01:11)
[2020-04-15] MEDS: IBUPROFEN 800 MG TAB PO PRN (06:11)
[2020-04-15] MEDS: metFORMIN 500 MG TAB PO SCH (09:30)
[2020-04-15] MEDS: FERROUS SULFATE 325 MG TAB PO SCH (09:33)
[2020-04-15] MEDS: NIFEdipine XL 30 MG TAB PO SCH (09:34)
--- NOTE | 2020-04-15 13:19 | Progress Note ---
Assessment and Plan A: S/P Preecclampsia, Anemia DM P: D/C home per Dr Qureshi's orders See d/c instructions Subjective - Subjective Date of service: 04/15/20 Principal diagnosis: S/P delivery; PPD#4; Pre-eclamsia Patient reports: appetite normal, voiding normally, pain well controlled, ambulating normally [place]: doing well, nursing well Objective - Vital Signs Latest vital signs: Vital Signs Temp Pulse Resp BP Pulse Ox 04/15/20 07:37 97.8 F 66 20 146/63 97 04/15/20 04:35 98.0 F 64 18 142/59 92 04/15/20 00:55 98.0 F 82 18 158/76 94 04/14/20 22:03 98.0 F 81 18 145/63 95 04/14/20 17:22 20 04/14/20 16:33 98.5 F 71 18 154/67 96 04/14/20 13:56 65 167/82 Intake and Output 04/14/20 04/15/20 04/15/20 22:59 06:59 14:59 Intake Total 360 500 120 Balance 360 500 120 Intake: Oral 200 120 Intake, Free Water 360 300 Other: Total, Intake Amount 200 120 # Voids Void 1 1 - Exam Breasts: Present: normal Cardiovascular: Present: Regular rate Lungs: Present: Clear to auscultation Abdomen: Present: normal appearance, soft, normal bowel sounds Vulva: both: normal Uterus: Present: normal, firm, fundal height below umbilicus Extremities: Present: normal Incision: Present: normal, dry, intact - Labs Labs: Abnormal lab results 04/15/20 Range/Units 01:07 POC Glucose 120 H (70-105) mg/dL
[2020-04-15 13:34] VITALS: BP 135/61
--- NOTE | 2020-04-15 16:50 | Discharge Summary ---
Providers - Providers Date of Admission: 04/04/20 20:17 Date of discharge: 04/15/20 Attending physician: FATIMAH ALAS MD 04/04/20 20:29 Consult to Physician [CONS] Routine Comment: Consulting Provider: MARK HILL Physician Instructions: Reason For Exam: severe preeclampsia; gestation 04/04/20 20:47 Consult to Physician [CONS] Routine Comment: Consulting Provider: ELISA SHIELDS Physician Instructions: Reason For Exam: severe preeclampsia, gestation Primary care physician: FATIMAH ALAS MD Hospitalization Reason for admission: induction of labor Delivery: Episiotomy: none Laceration: 1st degree, other (perineal lac) Incision: normal, dry, intact Other procedures: none complications: other (preeclampsia with elevated b/ps) Discharge diagnosis: delivery baby: male Hospital course: Pt was sent to the hospital for an evaul of her b/p and was subsequently admitted for preeclampsia and induced. She had an extended pp stay r/t elevated b/ps. Pt was d/cd home in stable condition. See H&P, delivery summary, and pp notes. Condition at discharge: Stable Disposition: DC-01 TO HOME OR SELFCARE Plan - Discharge Medications Prescriptions: metFORMIN [Glucophage] 500 mg PO TIDDIAB #120 tablet labetaloL [Labetalol 100mg TAB] 300 mg PO Q8HR #90 tablet labetaloL [Labetalol 200mg TAB] 500 mg PO Q8HR #120 tablet Labetalol HCl [Labetalol 300mg TAB] 300 mg PO Q6H #120 tablet Ibuprofen [Motrin 600 MG tab] 600 mg PO Q6HR PRN #60 tablet PRN Reason: Pain NIFEdipine XL [Procardia Xl] 30 mg PO QDAY #90 tablet NIFEdipine [Procardia Xl] 90 mg PO QDAY #30 tab.er.24 Sertraline [Zoloft] 25 mg PO QDAY 30 Days #30 tab - Provider Discharge Summary Additional instructions: [] Smoking cessation referral if applicable(refer to patient education folder for contact #) [] Refer to [facility]'s [facility] Booklet Call your doctor immediately for: * Fever > 100.5 * Heavy vaginal bleeding ( >1 pad per hour) * Severe persistent headache * Shortness of breath * Reddened, hot, painful area to leg or breast * Drainage or odor from incision. * Keep incision clean and dry at all times and follow doctor's instructions regarding bathing/showering - Follow up plan Follow up: FATIMAH ALAS MD [Primary Care Provider] - 7 Days Forms: C Discharge Summary, Discharge Signature Page
== END 2020-04-15 15:42 | disposition home or self-care (01) | DRG 774 ==
LOC: TRG 17:17 → APU 17:18 → LD 20:17 → TRG 20:17 → OB 04-11 21:52
PROVIDERS: ADMIT Obstetrics & Gynecology; ATTEND Obstetrics & Gynecology
PROC: 10E0XZZ Delivery of Products of Conception, External Approach (ICD-10-PCS; principal; 2020-04-10)
PROC: 3E033VJ Introduction of Other Hormone into Peripheral Vein, Percutaneous Approach (ICD-10-PCS; 2020-04-10)
PROC: 3E0R3BZ Introduction of Anesthetic Agent into Spinal Canal, Percutaneous Approach (ICD-10-PCS; 2020-04-10)
PROC: 00HU33Z Insertion of Infusion Device into Spinal Canal, Percutaneous Approach (ICD-10-PCS; 2020-04-10)
PROC: 0HQ9XZZ Repair Perineum Skin, External Approach (ICD-10-PCS; 2020-04-10)
DX: O11.4 Pre-existing hypertension with pre-eclampsia, complicating childbirth (principal); O24.92 Unspecified diabetes mellitus in childbirth; O99.344 Other mental disorders complicating childbirth; F32.9 Major depressive disorder, single episode, unspecified; O99.214 Obesity complicating childbirth; E66.9 Obesity, unspecified; O99.02 Anemia complicating childbirth; O70.0 First degree perineal laceration during delivery; O62.2 Other uterine inertia; Z20.828 Contact with and (suspected) exposure to other viral communicable diseases; Z3A.33 33 weeks gestation of pregnancy; Z82.49 Family history of ischemic heart disease and other diseases of the circulatory system; Z37.0 Single live birth; Z83.3 Family history of diabetes mellitus; Z80.9 Family history of malignant neoplasm, unspecified; Z88.0 Allergy status to penicillin; Z79.82 Long term (current) use of aspirin; Z79.899 Other long term (current) drug therapy; Z91.14 Patient's other noncompliance with medication regimen
CPT/HCPCS: 36415; 76816; 76819; 80053; 81001; 82565; 82570; 82962; 83010; 83036; 83615; 83735; 84156; 84450; 84460; 84550; 85014; 85018; 85025; 85027; 85379; 85384; 85460; 85610; 85730; 86592; 86706; 86762; 86803; 86850; 86900; 86901; 87255; 87529; 87806; 88307; 93970; G0378; J0290; J0360; J0702; J1815; J2405; J2590; J3475; J7120; U0003